=== PATIENT | female | born 1965 | race Caucasian/White ===

== ENCOUNTER 2016-10-22 18:46 | Emergency (ER) | payer MEDICARE, MEDICAID ==
[~2016-10-22] VITALS: Ht 162.6 cm; Wt 51.7 kg
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
--- OUTSIDE RECORDS SUMMARY | 2016-10-22 18:51 | XMS REPORT | Continuity of Care Document ---
Author Author [facility] Organization [facility] Address [address] [place] [address] ;ext= Care Team Providers Care Rabble Furnace Tender Name Role Phone Priya BLANCO Admitting Physician Unavailable Priya BLANCO Attending Physician Unavailable Hospital Admission Diagnosis * No data in the System Social History Element Description Code Description Smoking Status Code System Start Date End Date Smoking Status [id number] Smoker, current status unknown SNOMED-CT Problems Code Code System Problem Name Start Date End Date Status 176644893 SNOMED-CT Backache 03/31/2016 Active 492236620 SNOMED-CT Backache 03/14/2016 Active NECK, BACK, LEG PAIN 03/11/2016 Active HEADACHE, LEG PAIN 11/08/2015 Active VOMITING, HEADACHE 10/19/2015 Active BACK/NECK PAIN 08/30/2015 Active ELBOW AND ANKLE PAIN 07/06/2015 Active 058513252 SNOMED-CT C/O - a headache 08/10/2014 Active 89380031 SNOMED-CT Drug withdrawal seizure 04/2014 Active 078205301 SNOMED-CT Rib pain Unknown Active Medications RxNorm [...] 40 milligram Oral orally every day Active 195731 Zolpidem tartrate 10 MG Oral Tablet 10 milligram Oral orally every day at bedtime (takes 1/2 to 1 tab) Active 032031 Acetaminophen 325 MG / Hydrocodone Bitartrate 10 [...] Longer Active Cenestin 0.45mg No Longer Active 663459 Citalopram 10 MG Oral Tablet 10 milligram Oral orally every day No Longer Active 3866420 Estrogens, Conjugated ([facility]) 0.45 MG / medroxyprogesterone acetate 1.5 MG Oral Tablet 2 tablets Oral orally every day No Longer Active 32907 gabapentin 100 milligram Oral orally every day (Dose unknown, pt unable to provide and pharmacy closed. --KKL) No Longer Active 589722 gabapentin 600 MG Oral Tablet 600 milligram Oral orally every 12 hours No Longer Active Hycodan Liquid 5 ml Oral orally three times daily cough, pneumonia No Longer Active Linisprolil 20mg No Longer Active 6918 Metoprolol 50 milligram Oral orally every day No Longer Active 5385794 Oxycodone Hydrochloride 10 MG Oral Tablet 10 milligram Oral orally every 4 to 6 hours as needed. for severe pain not to exceeed 5 daily No Longer Active 550405 solifenacin succinate 10 MG Oral Tablet 10 milligram Oral orally every day No Longer Active Allergies Code Code System Allergy Substance Type Reaction Severity Start Date End Date Status 1191 RXNorm Aspirin Drug allergy Unknown 06/16/2009 Active 742619 RXNorm Benadryl Drug allergy Unknown 10/19/2015 Active 832294 RXNorm Flexeril Drug allergy Unknown 08/06/2012 Active 5640 RXNorm Ibuprofen Drug allergy Unknown 06/16/2009 Active 5933 RXNorm Iodine Drug allergy Unknown 08/06/2012 Active 036202 RXNorm Peanut Drug allergy Unknown 08/06/2012 Active RXNorm MISC-Other Allergy to substance Unknown 06/16/2009 Active Results * No data in the system Vital Signs Vitals Value Date Respiratory Rate 20 07/14/2016 O2% BldC Oximetry 98 07/14/2016 BP Systolic 141 mmHg 07/14/2016 BP Diastolic 76 mmHg 07/14/2016 Plan of Care * No data in [...]
--- OUTSIDE RECORDS SUMMARY | 2016-10-22 18:51 | XMS REPORT | Continuity of Care Document ---
Author Author [facility] Organization [facility] Address [address] [place] [address] ;ext= Care Team Providers Care Registered Private Duty Nurse Name Role Phone BOLIVAR RANGEL Admitting Physician Unavailable BOLIVAR RANGEL Attending Physician Unavailable Hospital Admission Diagnosis Code Admission Diagnosis Date [id number] Headache Social History Element Description Code Description Smoking Status Code System Start Date End Date Smoking Status [id number] Heavy tobacco smoker SNOMED-CT Problems Code Code System Problem Name Start Date End Date Status 704397888 SNOMED-CT Backache 03/31/2016 Active 037464249 SNOMED-CT Backache 03/14/2016 Active NECK, BACK, LEG PAIN 03/11/2016 Active HEADACHE, LEG PAIN 11/08/2015 Active VOMITING, HEADACHE 10/19/2015 Active BACK/NECK PAIN 08/30/2015 Active ELBOW AND ANKLE PAIN 07/06/2015 Active 911779070 SNOMED-CT C/O - a headache 08/10/2014 Active 32481055 SNOMED-CT Drug withdrawal seizure 04/2014 Active 948821396 SNOMED-CT Rib pain Unknown Active Medications RxNorm Medication Dose Route Instructions Indications Start Date End Date Status 435 Albuterol 1 puff Inhalation inhaled every 6 hours as needed. ( administer with spacer) shortness of breath or wheezing Active 596 Alprazolam 0.5 milligram Oral orally at hs as needed. for insomnia Active 9 Estrogens, Conjugated ([facility]) 0.625 milligram Oral orally every day Active 19780219 Lisinopril 40 MG Oral Tablet 40 milligram Oral orally every day Active 388732 Zolpidem tartrate 10 MG Oral Tablet 10 milligram Oral orally every day at bedtime (takes 1/2 to 1 tab) Active 487427 Acetaminophen 325 MG / Hydrocodone Bitartrate 10 [...] Longer Active Cenestin 0.45mg No Longer Active 758287 Citalopram 10 MG Oral Tablet 10 milligram Oral orally every day No Longer Active 1674351 Estrogens, Conjugated ([facility]) 0.45 MG / medroxyprogesterone acetate 1.5 MG Oral Tablet 2 tablets Oral orally every day No Longer Active 76779 gabapentin 100 milligram Oral orally every day (Dose unknown, pt unable to provide and pharmacy closed. --KK) No Longer Active 681246 gabapentin 600 MG Oral Tablet 600 milligram Oral orally every 12 hours No Longer Active Hycodan Liquid 5 ml Oral orally three times daily cough, pneumonia No Longer Active Linisprolil 20mg No Longer Active 6918 Metoprolol 50 milligram Oral orally every day No Longer Active 6114264 Oxycodone Hydrochloride 10 MG Oral Tablet 10 milligram Oral orally every 4 to 6 hours as needed. for severe pain not to exceeed 5 daily No Longer Active 485800 solifenacin succinate 10 MG Oral Tablet 10 milligram Oral orally every day No Longer Active Allergies Code Code System Allergy Substance Type Reaction Severity Start Date End Date Status 1191 RXNorm Aspirin Drug allergy Unknown 06/16/2009 Active 914037 RXNorm Benadryl Drug allergy Unknown 10/19/2015 Active 344602 RXNorm Flexeril Drug allergy Unknown 08/06/2012 Active 5640 RXNorm Ibuprofen Drug allergy Unknown 06/16/2009 Active 5933 RXNorm Iodine Drug allergy Unknown 08/06/2012 Active 752723 RXNorm Peanut Drug allergy Unknown 08/06/2012 Active RXNorm MISC-Other Allergy to substance Unknown 06/16/2009 Active Results Radiology Results Order: [id number] Ankle RT 3 views* Exam Completion Date:06/22/2016 [...] 95.01 lbs 06/22/2016 BSA (Body Surface Area) 1.77589 06/22/2016 BMI (Body Mass Index) 16.4 06/22/2016 Plan of Care * No data in the system Procedures * No data in the system Encounters Date Code Diagnosis Status (ICD10) - R51 HEADACHE Active Immunizations Vaccine Code Code System Vaccine Name Date Status 16 CVX influenza virus vaccine, whole virus 05/03/2012 Completed 88 CVX influenza virus vaccine, NOS 04/27/2015 Completed Functional Status * No data in the system Hospital Discharge Instructions * No data in the system
--- OUTSIDE RECORDS SUMMARY | 2016-10-22 18:51 | XMS REPORT | Continuity of Care Document ---
Author Author [facility] Organization [facility] Address [address] [place] [address] ;ext= Care Team Providers Care Proof Plate Maker Name Role Phone DR JOSE LUIS DOWELL Admitting Physician [phone] DR JOSE LUIS DOWELL Attending Physician [phone] Hospital Admission Diagnosis Code Admission Diagnosis Date [id number] Deaf mutism Social History Element Description Code Description Smoking Status Code System Start Date End Date Smoking Status [id number] Unknown if ever smoked SNOMED-CT Problems Code Code System Problem Name Start Date End Date Status 348537991 SNOMED-CT Backache 03/31/2016 Active 967824792 SNOMED-CT Backache 03/14/2016 Active NECK, BACK, LEG PAIN 03/11/2016 Active HEADACHE, LEG PAIN 11/08/2015 Active VOMITING, HEADACHE 10/19/2015 Active BACK/NECK PAIN 08/30/2015 Active ELBOW AND ANKLE PAIN 07/06/2015 Active 207295820 SNOMED-CT C/O - a headache 08/10/2014 Active 99255431 SNOMED-CT Drug withdrawal seizure 04/2014 Active 375462730 SNOMED-CT Rib pain Unknown Active Medications RxNorm Medication Dose Route Instructions Indications Start Date End Date Status 435 Albuterol 1 puff Inhalation inhaled every 6 hours as needed. ( administer with spacer) shortness of breath or wheezing Active 596 Alprazolam 0.5 milligram Oral orally at hs as needed. for insomnia Active 4099 Estrogens, Conjugated ([facility]) 0.625 milligram Oral orally every day Active 33875 gabapentin 100 milligram Oral orally every day (Dose unknown, pt unable to provide and pharmacy closed. --KKL) Active 93862 Lisinopril 40 milligram Oral orally every day Active 07182 zolpidem 10 milligram Oral orally every day at bedtime (takes 1/2 to 1 tab) Active Acetaminophen 650 milligram Oral orally every 6 hours as needed. pain No Longer Active 351935 Acetaminophen 325 MG / Hydrocodone Bitartrate 10 MG Oral Tablet 1 tablet Oral orally every 4 to 6 hours as needed. for severe pain No Longer Active Azithromycin 200 mg Oral orally every day for 10 days No Longer Active Cenestin 0.45mg No Longer Active 2556 Citalopram 10 milligram Oral orally every day No Longer Active 8482460 Estrogens, Conjugated ([facility]) 0.45 MG / medroxyprogesterone acetate 1.5 MG Oral Tablet 2 tablets Oral orally every day No Longer Active 87715 gabapentin 600 milligram Oral orally every 12 hours No Longer Active Hycodan Liquid 5 ml Oral orally three times daily cough, pneumonia No Longer Active Linisprolil 20mg No Longer Active 6918 Metoprolol 50 milligram Oral orally every day No Longer Active 7804 Oxycodone 10 milligram Oral orally every 4 to 6 hours as needed. for severe pain not to exceeed 5 daily No Longer Active 588452 Solifenacin 10 milligram Oral orally every day No Longer Active Allergies Code Code System Allergy Substance Type Reaction Severity Start Date End Date Status 1191 RXNorm Aspirin Drug allergy Unknown 06/16/2009 Active 075674 RXNorm Benadryl Drug allergy Unknown 10/19/2015 Active 266345 RXNorm Flexeril Drug allergy Unknown 08/06/2012 Active 5640 RXNorm Ibuprofen Drug allergy Unknown 06/16/2009 Active 5933 RXNorm Iodine Drug allergy Unknown 08/06/2012 Active 745722 RXNorm Peanut Drug allergy Unknown 08/06/2012 Active RXNorm MISC-Other Allergy to substance Unknown 06/16/2009 Active Results * No data in the system Vital Signs Vitals Value Date Body Temperature 98.2 F 03/31/2016 Respiratory Rate 18 03/31/2016 O2% BldC Oximetry 98 03/31/2016 BP Systolic 184 mmHg 03/31/2016 BP Diastolic 99 mmHg 03/31/2016 Height 64 in 03/31/2016 Weight Measured 100 lbs 03/31/2016 BSA (Body Surface Area) 1.99789 03/31/2016 BMI (Body Mass Index) 17.2 03/31/2016 Plan of Care * No data in the system Procedures * No data in the system Encounters Date Code Diagnosis Status (ICD10) - H913 DEAF NONSPEAKING NEC Active Immunizations Vaccine Code Code System Vaccine Name Date Status 16 CVX influenza virus vaccine, whole virus 05/03/2012 Completed 88 CVX influenza virus vaccine, NOS 04/27/2015 Completed Functional Status * No data in the system Hospital Discharge Instructions * No data in the system
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
--- OUTSIDE RECORDS SUMMARY | 2016-10-22 18:51 | XMS REPORT | Continuity of Care Document ---
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 Young Adult Librarian Name Role Phone [employer] Unavailable Unavailable Problems Medications Allergies, Adverse Reactions, Alerts Substance Category Reaction Severity Reaction type Status Date Reported Comments Source aspirin Datatype(AL1.2)-Drug Allergy Active 12/07/2006 [facility] Iodine Datatype(AL1.2)-Drug Allergy Active 12/07/2006 [facility] Immunizations Results Vital Signs Encounters Location Location Details Encounter Type Encounter Number Reason For Visit Attending Provider ADM Date DC Date Status Source [facility] Emergency Room [id number] POSS URINE INFECTION [facility] 12/07/2006 Active [facility] Procedures Plan of Care Social History Assessment and Plan Family History Value Date Source Advance Directives Order Name Results Value Date Source
--- OUTSIDE RECORDS SUMMARY | 2016-10-22 18:51 | XMS REPORT | Continuity of Care Document ---
Author Author [facility] Organization [facility] Address [address] [place] [address] ;ext= Care Team Providers Care Spool Cleaner Name Role Phone Priya BLANCO Admitting Physician Unavailable Priya BLANCO Attending Physician Unavailable Hospital Admission Diagnosis Code Admission Diagnosis Date [id number] Disorder of lumbar disc Social History Element Description Code Description Smoking Status Code System Start Date End Date Smoking Status [id number] Smoker, current status unknown SNOMED-CT Problems Code Code System Problem Name Start Date End Date Status [id number] SNOMED-CT Backache 03/31/2016 Active 986646074 SNOMED-CT Backache 03/14/2016 Active NECK, BACK, LEG PAIN 03/11/2016 Active HEADACHE, LEG PAIN 11/08/2015 Active VOMITING, HEADACHE 10/19/2015 Active BACK/NECK PAIN 08/30/2015 Active ELBOW AND ANKLE PAIN 07/06/2015 Active 703811320 SNOMED-CT C/O - a headache 08/10/2014 Active 51131554 SNOMED-CT Drug withdrawal seizure 04/2014 Active 556870052 SNOMED-CT Rib pain Unknown Active Medications RxNorm Medication Dose Route Instructions Indications Start Date End Date Status 435 Albuterol 1 puff Inhalation inhaled every 6 hours as needed. ( administer with spacer) shortness of breath or wheezing Active 596 Alprazolam 0.5 milligram Oral orally at hs as needed. for insomnia Active 9 Estrogens, Conjugated (ASSISTED) 0.625 milligram Oral orally every day Active 013473 Lisinopril 40 MG Oral Tablet 40 milligram Oral orally every day Active 397578 Zolpidem tartrate 10 MG Oral Tablet 10 milligram Oral orally every day at bedtime (takes 1/2 to 1 tab) Active 789671 Acetaminophen 325 MG / Hydrocodone Bitartrate 10 [...] Longer Active Cenestin 0.45mg No Longer Active 258606 Citalopram 10 MG Oral Tablet 10 milligram Oral orally every day No Longer Active 4283359 Estrogens, Conjugated (ASSISTED) 0.45 MG / medroxyprogesterone acetate 1.5 MG Oral Tablet 2 tablets Oral orally every day No Longer Active 57958 gabapentin 100 milligram Oral orally every day (Dose unknown, pt unable to provide and pharmacy closed. --[facility]) No Longer Active 954556 gabapentin 600 MG Oral Tablet 600 milligram Oral orally every 12 hours No Longer Active Hycodan Liquid 5 ml Oral orally three times daily cough, pneumonia No Longer Active Linisprolil 20mg No Longer Active 6918 Metoprolol 50 milligram Oral orally every day No Longer Active 5164998 Oxycodone Hydrochloride 10 MG Oral Tablet 10 milligram Oral orally every 4 to 6 hours as needed. for severe pain not to exceeed 5 daily No Longer Active 758209 solifenacin succinate 10 MG Oral Tablet 10 milligram Oral orally every day No Longer Active Allergies Code Code System Allergy Substance Type Reaction Severity Start Date End Date Status 1191 RXNorm Aspirin Drug allergy Unknown 06/16/2009 Active 193317 RXNorm Benadryl Drug allergy Unknown 10/19/2015 Active 591356 RXNorm Flexeril Drug allergy Unknown 08/06/2012 Active 5640 RXNorm Ibuprofen Drug allergy Unknown 06/16/2009 Active 5933 RXNorm Iodine Drug allergy Unknown 08/06/2012 Active 343946 RXNorm Peanut Drug allergy Unknown 08/06/2012 Active [...] Encounters Date Code Diagnosis Status (ICD10) - M5116 IV DISC D/O W/RADICULOPATHY LUMB Active Immunizations Vaccine Code Code System Vaccine Name Date Status 16 CVX influenza virus vaccine, whole virus 05/03/2012 Completed 88 CVX influenza virus vaccine, NOS 04/27/2015 Completed Functional Status * No data in the system Hospital Discharge Instructions * No data in the system
--- OUTSIDE RECORDS SUMMARY | 2016-10-22 18:51 | XMS REPORT | Summary of Care ---
Author Author Moustapha Graves D.O. Organization Unknown Address [address] [place], [place] [id number] Phone Unavailable Care Team Providers Care Pluck Trimmer Name Role Phone Rogerio Crawford M.D. Unavailable Unavailable Rocio Baron M.D. Unavailable Unavailable Rogerio Graves D.O. Unavailable Unavailable Verify PCP Unavailable Unavailable Unavailable [...] 4 PER DAY*MAY FILL ON OR AFTER 8/12/14* Quantity: 120 Loraine Aleman, Rocio * Start 24-Oct-2012 Active Prempro 0.3-1.5 MG Oral Tablet TAKE ONE TABLET BY MOUTH EVERY OTHER DAY * Quantity: 28 Refills: 2 Thode Gilbert Aleman Start 24-Oct-2012 Active Lisinopril 40 MG Oral Tablet TAKE ONE TABLET BY MOUTH ONCE DAILY DIRECTED * Quantity: 30 Refills: 4 Thode Gilbert Aleman Start 24-Oct-2012 Active Zolpidem Tartrate 10 MG Oral Tablet TAKE ONE TABLET BY MOUTH AT BEDTIME NEEDED FOR SLEEP. MUST LAST 30 DAYS. * Quantity: 30 Refills: 0 ThGilbert perez M.D. Start 18-Jul-2013 Active ALPRAZolam 1 MG Oral Tablet * Refills: 0 * Start 10-Sep-2016 Active Metoprolol Succinate ER 50 MG Oral Tablet Extended Release 24 Hour TAKE ONE TABLET BY MOUTH ONCE A DAY * Quantity: 30 Refills: 2 [place] Gilbert Aleman Start 10-Sep-2016 [facility] Fluticasone Propionate 50 [...] Abdominal Hysterectomy ORTHO ANKLE RIGHT Ordered: 30-Sep-2016 XRay FOOT-Left Ordered: 13-Oct-2016 Immunization Name Dates Details Immunizations not documented [...] Vital Signs Date Test Result Details 13-Oct-2016 11:37 BP Systolic 140 mm[Hg] Status: Comments: Location: LUE; Position: Sitting BP Diastolic 90 mm[Hg] Status: Comments: Location: LUE; Position: Sitting Temperature 97.3 f Status: Comments: Method: Heart Rate 62 /min Status: Comments: Location: ; Weight 104.5 lb Status: Physical Findings 96 Status: Comments: O2 Saturation Body Mass Index Calculated 19.11 kg/m2 Status: Body Surface Area Calculated 1.45 m2 Status: 21-Sep-2016 10:36 BP Systolic 122 mm[Hg] Status: Comments: Location: ; Position: BP Diastolic 84 mm[Hg] Status: Comments: Location: ; Position: Temperature 97.2 f Status: Comments: Method: Heart Rate 59 /min Status: Comments: Location: [...] NEGATIVE Range: Negative [place] NEGATIVE Range: Negative Plan of Care Name Dates Details Planned Observations Planned Goals not documented Planned Encounters Appointment; Provider: Osmany Coreas M.D. On 13-Oct-2016 13:00 Interventions Provided Medication Changes* Hydrocodone-Acetaminophen 10-325 MG Oral Tablet - Start Labs/Procedures/Imaging* XRay FOOT-Left; To be Done: 13 Oct 2016 Instructions Name Dates Details Instructions not documented Encounters Appointment; Dawood Ospina M.D. Encounter Diagnosis: Problem not documented On 30-Sep-2016 14:30 Appointment; Gilbert Crawford M.D. Encounter Diagnosis: Problem not documented On 21-Sep-2016 10:00 Appointment; Dawood Ospina M.D. Encounter Diagnosis: Problem not documented On 21-Sep-2016 09:30 Appointment; Gilbert Crawford M.D. Encounter Diagnosis: Problem not documented On 10-Sep-2016 14:15
--- OUTSIDE RECORDS SUMMARY | 2016-10-22 18:51 | XMS REPORT | Continuity of Care Document ---
Author Author [facility] Organization [facility] Address [address] [place] [address] ;ext= Care Team Providers Care Product Safety And Standards Engineer Name Role Phone BOLIVAR RANGEL Admitting Physician Unavailable BOLIVAR RANGEL Attending Physician Unavailable Hospital Admission Diagnosis Code Admission Diagnosis Date [id number] Contusion of elbow Social History Element Description Code Description Smoking Status Code System Start Date End Date Smoking Status [id number] Light tobacco smoker SNOMED-CT Problems Code Code System Problem Name Start Date End Date Status BACK/NECK PAIN 08/30/2015 Active ELBOW AND ANKLE PAIN 07/06/2015 Active 183312252 SNOMED-CT C/O - a headache 08/10/2014 Active 31768849 SNOMED-CT Drug withdrawal seizure 04/2014 Active 820059669 SNOMED-CT Rib pain Unknown Active Medications RxNorm Medication Dose Route Instructions Indications Start Date End Date Status 435 Albuterol 1 puff Inhalation inhaled every 6 hours as needed. ( administer with spacer) shortness of breath or wheezing Active 596 Alprazolam 0.5 milligram Oral orally at hs as needed. for insomnia Active 4099 Estrogens, Conjugated (FPC) 0.625 milligram Oral orally every day Active 19780219 Lisinopril 40 MG Oral Tablet 40 milligram Oral orally every day Active 18 Metoprolol 50 milligram Oral orally every day Active 723794 Zolpidem tartrate 10 MG Oral Tablet 10 milligram Oral orally every day at bedtime (takes 1/2 to 1 tab) Active 167329 Acetaminophen 325 MG / Hydrocodone Bitartrate 10 [...] Longer Active Cenestin 0.45mg No Longer Active 556162 Citalopram 10 MG Oral Tablet 10 milligram Oral orally every day No Longer Active 8530831 Estrogens, Conjugated (FPC) 0.45 MG / medroxyprogesterone acetate 1.5 MG Oral Tablet 2 tablets Oral orally every day No Longer Active 475022 gabapentin 600 MG Oral Tablet 600 milligram Oral orally every 12 hours No Longer Active Hycodan Liquid 5 ml Oral orally three times daily cough, pneumonia No Longer Active Linisprolil 20mg No Longer Active 4617198 Oxycodone Hydrochloride 10 MG Oral Tablet 10 milligram Oral orally every 4 to 6 hours as needed. for severe pain not to exceeed 5 daily No Longer Active 945590 solifenacin succinate 10 MG Oral Tablet 10 milligram Oral orally every day No Longer Active Allergies Code Code System Allergy Substance Type Reaction Severity Start Date End Date Status 1191 RXNorm Aspirin Drug allergy Unknown 06/16/2009 Active 917204 RXNorm Flexeril Drug allergy Unknown 08/06/2012 Active 5640 RXNorm Ibuprofen Drug allergy Unknown 06/16/2009 Active 5933 RXNorm Iodine Drug allergy Unknown 08/06/2012 Active 973014 RXNorm Peanut Drug allergy Unknown 08/06/2012 Active RXNorm MISC-Other Allergy to substance Unknown 06/16/2009 Active Results Radiology Results Order: [id number] Knee RT 3 views* Exam Completion Date:09/11/2015 14:43 INDICATION: FallKnee RT 3 views: There are minimal hypertrophic changes in the right knee.Probable tiny right knee joint effusion. The right knee is otherwise negative.There are no erosions. There are no focal osseous lesions. No evidence of afracture. No significant change since 07/22/2015.Released By MELANY MEDINA, JASIELate: 09/11/2015 15:26 Order: [id number] Elbow Bilat 3 views* Exam Completion Date:09/11/2015 14:42 INDICATION: FallBILATERAL ELBOWS 3-VIEWS EACH (AP, OBLIQUE & LAT): COMPARISON: NoneFINDINGS: Mild hypertrophic changes in the right elbow. Both elbows areotherwise negative. There are no focal osseous lesions. No evidence of afracture or a significant joint effusion involving either elbow. Released By JASIEL CHASEate: 09/11/2015 15:26 Vital Signs Vitals Value Date Body Temperature 98 F 09/11/2015 Respiratory Rate 18 09/11/2015 O2% BldC Oximetry 99 09/11/2015 BP Systolic 212 mmHg 09/11/2015 BP Diastolic 111 mmHg 09/11/2015 Height 64 in 09/11/2015 Weight Measured 103.17 lbs 09/11/2015 BSA (Body Surface Area) 1.02480 09/11/2015 BMI (Body Mass Index) 17.8 09/11/2015 Plan of Care * No data in the system Procedures * No data in the system Encounters Date Code Diagnosis Status (ICD10) - A0373HJ CONTUSION LEFT ELBOW INITIAL ENC Active Immunizations Vaccine Code Code System Vaccine Name Date Status 16 CVX influenza virus vaccine, whole virus 05/03/2012 Completed Functional Status * No data in the system Hospital Discharge Instructions * No data in the system
--- OUTSIDE RECORDS SUMMARY | 2016-10-22 18:51 | XMS REPORT | Continuity of Care Document ---
Author Author [facility] Organization [facility] Address [address] [place] [address] ;ext= Care Team Providers Care Supervisor Cereal Name Role Phone Ehsan MARQUEZ Admitting Physician Unavailable Ehsan MARQUEZ Attending Physician Unavailable Hospital Admission Diagnosis Code Admission Diagnosis Date [id number] Injury of head Social History Element Description Code Description Smoking Status Code System Start Date End Date Smoking Status [id number] Current every day smoker SNOMED-CT Problems Code Code System Problem Name Start Date End Date Status 897568576 SNOMED-CT Backache 03/31/2016 Active 687321193 SNOMED-CT Backache 03/14/2016 Active NECK, BACK, LEG PAIN 03/11/2016 Active HEADACHE, LEG PAIN 11/08/2015 Active VOMITING, HEADACHE 10/19/2015 Active BACK/NECK PAIN 08/30/2015 Active ELBOW AND ANKLE PAIN 07/06/2015 Active 339932270 SNOMED-CT C/O - a headache 08/10/2014 Active 53979865 SNOMED-CT Drug withdrawal seizure 04/2014 Active 999260543 SNOMED-CT Rib pain Unknown Active Medications RxNorm Medication Dose Route Instructions Indications Start Date End Date Status 129512 Acetaminophen 325 MG / Hydrocodone Bitartrate 10 MG Oral Tablet 1 tablet Oral orally every 4 hours as needed. pain Active 435 Albuterol 1 puff Inhalation inhaled every 6 hours as needed. ( administer with spacer) shortness of breath or wheezing Active 596 Alprazolam 0.5 milligram Oral orally at hs as needed. for insomnia Active 4099 Estrogens, Conjugated (DETENTION) 0.625 milligram Oral orally every day Active 8187793 Fluticasone propionate 0.05 MG/ACTUAT Metered Dose Nasal Agate 1 spray Intranasal into the nostril(s) 2 times per day Active 166809 Lisinopril 40 MG Oral Tablet 40 milligram Oral orally every day Active 6918 Metoprolol 100 milligram Oral orally every day Active 679242 Zolpidem tartrate 10 MG Oral Tablet 10 milligram Oral orally every day at bedtime (takes 1/2 to 1 tab) Active 264653 Acetaminophen 325 MG / Hydrocodone Bitartrate 10 MG Oral Tablet 1 tablet Oral orally every 4 to 6 hours as needed. for severe pain No Longer Active 336006 Acetaminophen 650 MG Oral Tablet 650 milligram Oral orally every 6 hours as needed. pain No Longer Active Azithromycin 200 mg Oral orally every day for 10 days No Longer Active Cenestin 0.45mg No Longer Active 668267 Citalopram 10 MG Oral Tablet 10 milligram Oral orally every day No Longer Active 2901415 Estrogens, Conjugated (DETENTION) 0.45 MG / medroxyprogesterone acetate 1.5 MG Oral Tablet 2 tablets Oral orally every day No Longer Active 03775 gabapentin 100 milligram Oral orally every day (Dose unknown, pt unable to provide and pharmacy closed. --[facility]) No Longer Active 320772 gabapentin 600 MG Oral Tablet 600 milligram Oral orally every 12 hours No Longer Active Hycodan Liquid 5 ml Oral orally three times daily cough, pneumonia No Longer Active Linisprolil 20mg No Longer Active 6918 Metoprolol 50 milligram Oral orally every day No Longer Active 1836296 Oxycodone Hydrochloride 10 MG Oral Tablet 10 milligram Oral orally every 4 to 6 hours as needed. for severe pain not to exceeed 5 daily No Longer Active 285222 solifenacin succinate 10 MG Oral Tablet 10 milligram Oral orally every day No Longer Active Allergies Code Code System Allergy Substance Type Reaction Severity Start Date End Date Status 1191 RXNorm Aspirin Drug allergy Unknown 06/16/2009 Active 581920 RXNorm Benadryl Drug allergy Unknown 10/19/2015 Active 808865 RXNorm Flexeril Drug allergy Unknown 08/06/2012 Active 5640 RXNorm Ibuprofen Drug allergy Unknown 06/16/2009 Active 5933 RXNorm Iodine Drug allergy Unknown 08/06/2012 Active 967867 RXNorm Peanut Drug allergy Unknown 08/06/2012 Active RXNorm MISC-Other Allergy to substance Unknown 06/16/2009 Active Results Radiology Results Order: [id number] CT Lumbar Spine WO/Contrast* Exam Completion Date:10/09/2016 16: 32 INDICATION: fall, lbpCT Lumbar Spine WO/Contrast: Normal alignment. Vertebral body height and discspace height are maintained. No compression deformity. No pars defects. Thelung bases are clear, without pleural effusion or atelectasis. Bodies andposterior lateral elements are normal. No pars defects. No spondylolisthesis.The sacrum and sacroiliac joints are normal. No worrisome finding.Released By MICHELLE CORTES, JASIELate: 10/09/2016 17:01 Order: CTHDWO CT Head or Brain WO/Contrast* Exam Completion Date:10/09/2016 15: 54 INDICATION: head injuryCT Head or Brain WO/Contrast: CT Head or Brain WO/ ContrastTechnique: Axial acquisitions were obtained through the brain withoutcontrast. The ventricles and sulci are age-appropriate. The moore-white matter interfaceis maintained. There is no midline shift or mass effect. The basilarcisterns remain patent. There is no evidence for acute intracranialhemorrhage.IMPRESSION: No acute intracranial abnormality.Released By JASIEL DONISate: 10/09/2016 16:58 Order: CTCERWO CT Cerv Spine WO/Contrast* Exam Completion Date:10/09/2016 15:54 INDICATION: head injuryCT Cerv Spine WO/Contrast: Normal alignment. Multilevel anterior instrumentedfusion, from C3 through C6. No fracture. No acute bony abnormality. Moderatediscogenic disease at C6-7. The prevertebral soft tissue space is not widenedor thickened. Normal appearance of the dens. The vertebral bodies andposterior lateral elements are normal. No loosening of the prostheticelements. The upper lung zones are clear. No worrisome finding.Released By MICHELLE CORTES, MDDate: 10/09/2016 16:59 Vital Signs Vitals Value Date Respiratory Rate 20 10/09/2016 O2% BldC Oximetry 97 10/09/2016 BP Systolic 182 mmHg 10/09/2016 BP Diastolic 112 mmHg 10/09/2016 Weight Measured 135 lbs 10/09/2016 Body Temperature 97 F 10/09/2016 Plan of Care * No data in the system Procedures * No data in the system Encounters Date Code Diagnosis Status (ICD10) - G800MBT OTH SPEC INJURIES HEAD INITIAL ENC Active Immunizations Vaccine Code Code System Vaccine Name Date Status 16 CVX influenza virus vaccine, whole virus 05/03/2012 Completed 88 CVX influenza virus vaccine, NOS 04/27/2015 Completed Functional Status * No data in the system Hospital Discharge Instructions * No data in the system
--- OUTSIDE RECORDS SUMMARY | 2016-10-22 18:51 | XMS REPORT | Summary of Care ---
Author Author Dawood Ospina M.D. Organization Unknown Address Unknown Phone Unavailable Care Team Providers Care Fur Trapper Name Role Phone Rogerio Crawford M.D. Unavailable Unavailable Rocio Baron M.D. Unavailable Unavailable Guero Ospina M.D. Unavailable Unavailable Verify PCP Unavailable Unavailable [...] leg pain, right (729.5, M79.604) Status: Active Medications Name Dates Details Hydrocodone-Acetaminophen 10-325 MG Oral Tablet TAKE 1 TABLET BY MOUTH EVERY 6 HOURS NEEDED FOR PAIN.*MAX 4 PER DAY*MAY FILL ON OR AFTER 02/27/14* Quantity: 120 Loraine Aleman, Rocio * Start 24-Oct-2012 Active Prempro 0.3-1.5 MG Oral Tablet TAKE ONE TABLET BY MOUTH EVERY OTHER DAY * Quantity: 28 Refills: 2 Thode M.D., Gilbert L * Start 24-Oct-2012 Active Lisinopril 40 MG Oral Tablet TAKE ONE TABLET BY MOUTH ONCE DAILY DIRECTED * Quantity: 30 Refills: 4 Thode MGilbert Dean Start 24-Oct-2012 Active Zolpidem Tartrate 10 MG Oral Tablet TAKE ONE TABLET BY MOUTH AT BEDTIME NEEDED FOR SLEEP. MUST LAST 30 DAYS. * Quantity: 30 Refills: 0 Thode Gilbert Aleman Start 18-Jul-2013 Active ALPRAZolam 1 MG Oral Tablet * Refills: 0 * Start 10-Sep-2016 Active Metoprolol Succinate ER 50 MG Oral Tablet Extended Release 24 Hour TAKE ONE TABLET BY MOUTH ONCE A DAY * Quantity: 30 Refills: 2 Thode MGilbert Dean Start 10-Sep-2016 Active [facility] Fluticasone Propionate 50 MCG/ACT Nasal Suspension 2 sprays in each nostril BID * Quantity: 1 Refills: 0 Thode Gilbert Aleman Start 10-Sep-2016 Active 15.8 ML Bottle Triamcinolone Acetonide 0.1 % External Lotion APPLY 2-3 TIMES DAILY TO AFFECTED AREA(S). * Quantity: 1 Refills: 0 Thode Gilbert Aleman Start 21-Sep-2016 Active 60 ML Bottle Allergies and Adverse Reactions Name Dates Details [...] therapy) (V07.4, Z79.890) Status: Active History of hypertension (V12.59, Z86.79) Status: Resolved Procedures Procedure Dates Details History [...] unknown Vital Signs Date Test Result Details 21-Sep-2016 10:36 BP Systolic 122 mm[Hg] Status: [...] Body Surface Area Calculated 1.44 m2 Status: 10-Sep-2016 15:27 BP Systolic 124 mm[Hg] Status: Comments: Location: LUE; Position: Sitting BP Diastolic 82 mm[Hg] Status: Comments: Location: LUE; Position: Sitting Heart Rate 70 /min Status: Comments: Location: ; Height 62 in Status: Weight 99 lb Status: Physical Findings 98 Status: Comments: O2 Saturation Body Mass Index Calculated 18.11 kg/m2 Status: Body Surface Area Calculated 1.42 m2 Status: Results Date Description Value Details 10-Sep-2016 16:59 XRay FOOT-Right Comments: Exam Date: 09/10/2016 16: 10Dictation Date: 09/10/2016 16:59 X FOOT COMP (MIN 3V) RT 17:00 XRay TIBIA & FIBULA-Right Comments: Exam Date: 09/10/2016 16: 09Dictation Date: 09/10/2016 17:00 X TIBIA & FIBULA RT 21-Sep-2016 11:44 Urinalysis, Reflex to Microscopic or [...] Coreas M.D. On 13-Oct-2016 13:00 Interventions Provided Labs/Procedures/Imaging* ORTHO ANKLE RIGHT; To be Done: 30 Sep 2016 Instructions Name Dates Details Instructions not documented Encounters Appointment; Gilbert Crawford M.D. Encounter Diagnosis: Problem not documented On 21-Sep-2016 10:00 Appointment; Dawood Ospina M.D. Encounter Diagnosis: Problem not documented On 21-Sep-2016 09:30 Appointment; Gilbert Crawford M.D. Encounter Diagnosis: Problem not documented On 10-Sep-2016 14:15
--- OUTSIDE RECORDS SUMMARY | 2016-10-22 18:52 | XMS REPORT | Continuity of Care Document ---
Author Author [facility] Organization [facility] Address [address] [place] [address] ;ext= Care Team Providers Care Gas Blender Name Role Phone Ehsan CHANDRA Admitting Physician Unavailable Ehsan CHANDRA Attending Physician Unavailable Hospital Admission Diagnosis * No data in the System Social History Element Description Code Description Smoking Status Code System Start Date End Date Smoking Status [id number] Heavy tobacco smoker SNOMED-CT Problems Code Code System Problem Name Start Date End Date Status 825580569 SNOMED-CT Backache 03/14/2016 Active NECK, BACK, LEG PAIN 03/11/2016 Active HEADACHE, LEG PAIN 11/08/2015 Active VOMITING, HEADACHE 10/19/2015 Active BACK/NECK PAIN 08/30/2015 Active ELBOW AND ANKLE PAIN 07/06/2015 Active 500877642 SNOMED-CT C/O - a headache 08/10/2014 Active 42828743 SNOMED-CT Drug withdrawal seizure 04/2014 Active 614138041 SNOMED-CT Rib pain Unknown Active Medications RxNorm Medication Dose Route Instructions Indications Start Date End Date Status 435 Albuterol 1 puff Inhalation inhaled every 6 hours as needed. ( administer with spacer) shortness of breath or wheezing Active 596 Alprazolam 0.5 milligram Oral orally at hs as needed. for insomnia Active 4099 Estrogens, Conjugated (FDC) 0.625 milligram Oral orally every day Active 18736 gabapentin 100 milligram Oral orally every day (Dose unknown, pt unable to provide and pharmacy closed. --KKL) Active 19780219 Lisinopril 40 MG Oral Tablet 40 milligram Oral orally every day Active 327721 Zolpidem tartrate 10 MG Oral Tablet 10 milligram Oral orally every day at bedtime (takes 1/2 to 1 tab) Active 253004 Acetaminophen 325 MG / Hydrocodone Bitartrate 10 [...] Longer Active Cenestin 0.45mg No Longer Active 172013 Citalopram 10 MG Oral Tablet 10 milligram Oral orally every day No Longer Active 8176528 Estrogens, Conjugated (FDC) 0.45 MG / medroxyprogesterone acetate 1.5 MG Oral Tablet 2 tablets Oral orally every day No Longer Active 771055 gabapentin 600 MG Oral Tablet 600 milligram Oral orally every 12 hours No Longer Active Hycodan Liquid 5 ml Oral orally three times daily cough, pneumonia No Longer Active Linisprolil 20mg No Longer Active 6918 Metoprolol 50 milligram Oral orally every day No Longer Active 4360378 Oxycodone Hydrochloride 10 MG Oral Tablet 10 milligram Oral orally every 4 to 6 hours as needed. for severe pain not to exceeed 5 daily No Longer Active 861646 solifenacin succinate 10 MG Oral Tablet 10 milligram Oral orally every day No Longer Active Allergies Code Code System Allergy Substance Type Reaction Severity Start Date End Date Status 1191 RXNorm Aspirin Drug allergy Unknown 06/16/2009 Active 312692 RXNorm Benadryl Drug allergy Unknown 10/19/2015 Active 437033 RXNorm Flexeril Drug allergy Unknown 08/06/2012 Active 5640 RXNorm Ibuprofen Drug allergy Unknown 06/16/2009 Active 5933 RXNorm Iodine Drug allergy Unknown 08/06/2012 Active 769630 RXNorm Peanut Drug allergy Unknown 08/06/2012 Active RXNorm MISC-Other Allergy to substance Unknown 06/16/2009 Active Results * No data in the system Vital Signs Vitals Value Date Body Temperature 97.7 F 03/14/2016 Respiratory Rate 16 03/14/2016 O2% BldC Oximetry 100 03/14/2016 BP Systolic 162 mmHg 03/14/2016 BP Diastolic 72 mmHg 03/14/2016 Weight Measured 94.79 lbs 03/14/2016 Plan of Care * No data in [...]
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
--- OUTSIDE RECORDS SUMMARY | 2016-10-22 18:52 | XMS REPORT | Continuity of Care Document ---
Author Author [facility] Organization [facility] Address [address] [place] [address] ;ext= Care Team Providers Care Advertising Display Rotator Name Role Phone Ehsan CHANDRA Admitting Physician Unavailable Ehsan CHANDRA Attending Physician Unavailable Hospital Admission Diagnosis * No data in the System Social History Element Description Code Description Smoking Status Code System Start Date End Date Smoking Status [id number] Heavy tobacco smoker SNOMED-CT Problems Code Code System Problem Name Start Date End Date Status BACK/NECK PAIN 08/30/2015 Active ELBOW AND ANKLE PAIN 07/06/2015 Active 657302697 SNOMED-CT C/O - a headache 08/10/2014 Active 19512403 SNOMED-CT Drug withdrawal seizure 04/2014 Active 517048324 SNOMED-CT Rib pain Unknown Active Medications RxNorm Medication Dose Route Instructions Indications Start Date End Date Status 435 Albuterol 1 puff Inhalation inhaled every 6 hours as needed. ( administer with spacer) shortness of breath or wheezing Active 596 Alprazolam 0.5 milligram Oral orally at hs as needed. for insomnia Active 9 Estrogens, Conjugated (JAIL) 0.625 milligram Oral orally every day Active 19780219 Lisinopril 40 MG Oral Tablet 40 milligram Oral orally every day Active 18 Metoprolol 50 milligram Oral orally every day Active 529920 Zolpidem tartrate 10 MG Oral Tablet 10 milligram Oral orally every day at bedtime (takes 1/2 to 1 tab) Active 425965 Acetaminophen 325 MG / Hydrocodone Bitartrate 10 [...] Longer Active Cenestin 0.45mg No Longer Active 844308 Citalopram 10 MG Oral Tablet 10 milligram Oral orally every day No Longer Active 0321816 Estrogens, Conjugated (JAIL) 0.45 MG / medroxyprogesterone acetate 1.5 MG Oral Tablet 2 tablets Oral orally every day No Longer Active 037997 gabapentin 600 MG Oral Tablet 600 milligram Oral orally every 12 hours No Longer Active Hycodan Liquid 5 ml Oral orally three times daily cough, pneumonia No Longer Active Linisprolil 20mg No Longer Active 4632025 Oxycodone Hydrochloride 10 MG Oral Tablet 10 milligram Oral orally every 4 to 6 hours as needed. for severe pain not to exceeed 5 daily No Longer Active 010389 solifenacin succinate 10 MG Oral Tablet 10 milligram Oral orally every day No Longer Active Allergies Code Code System Allergy Substance Type Reaction Severity Start Date End Date Status 1191 RXNorm Aspirin Drug allergy Unknown 06/16/2009 Active 733686 RXNorm Flexeril Drug allergy Unknown 08/06/2012 Active 5640 RXNorm Ibuprofen Drug allergy Unknown 06/16/2009 Active 5933 RXNorm Iodine Drug allergy Unknown 08/06/2012 Active 716623 RXNorm Peanut Drug allergy Unknown 08/06/2012 Active RXNorm MISC-Other Allergy to substance Unknown 06/16/2009 Active Results * No data in the system Vital Signs Vitals Value Date Body Temperature 97.4 F 08/31/2015 Respiratory Rate 20 08/31/2015 O2% BldC Oximetry 97 08/31/2015 BP Systolic 163 mmHg 08/31/2015 BP Diastolic 101 mmHg 08/31/2015 Height 63 in 08/31/2015 Weight Measured 103.17 lbs 08/31/2015 BSA (Body Surface Area) 1.56601 08/31/2015 BMI (Body Mass Index) 18.2 08/31/2015 Plan of Care * No data in [...]
--- OUTSIDE RECORDS SUMMARY | 2016-10-22 18:52 | XMS REPORT | Continuity of Care Document ---
Author Author [facility] Organization [facility] Address [address] [place] [address] ;ext= Care Team Providers Care Crane Man Name Role Phone Ehsan CHANDRA Admitting Physician Unavailable Ehsan CHANDRA Attending Physician Unavailable Hospital Admission Diagnosis * No data in the System Social History Element Description Code Description Smoking Status Code System Start Date End Date Smoking Status [id number] Heavy tobacco smoker SNOMED-CT Problems Code Code System Problem Name Start Date End Date Status ELBOW AND ANKLE PAIN 07/06/2015 Active 360824777 SNOMED-CT C/O - a headache 08/10/2014 Active 79925355 SNOMED-CT Drug withdrawal seizure 04/2014 Active 400317835 SNOMED-CT Rib pain Unknown Active Medications RxNorm Medication Dose Route Instructions Indications Start Date End Date Status 247081 Acetaminophen 325 MG / Hydrocodone Bitartrate 10 MG Oral Tablet 1 tablet Oral orally every 4 to 6 hours as needed. for severe pain Active 728353 Acetaminophen 650 MG Oral Tablet 650 milligram Oral orally every 6 hours as needed. pain Active 435 Albuterol 1 puff Inhalation inhaled every 6 hours as needed. ( administer with spacer) shortness of breath or wheezing Active 596 Alprazolam 0.5 milligram Oral orally at hs as needed. for insomnia Active 310143 Citalopram 10 MG Oral Tablet 10 milligram Oral orally every day Active 4099 Estrogens, Conjugated (CUSTODIAL) 0.625 milligram Oral orally every day Active 614970 gabapentin 600 MG Oral Tablet 600 milligram Oral orally every 12 hours Active 569457 Lisinopril 40 MG Oral Tablet 40 milligram Oral orally every day Active 6918 Metoprolol 50 milligram Oral orally every day Active 7243290 Oxycodone Hydrochloride 10 MG Oral Tablet 10 milligram Oral orally every 4 to 6 hours as needed. for severe pain not to exceeed 5 daily Active 048259 solifenacin succinate 10 MG Oral Tablet 10 milligram Oral orally every day Active 392756 Zolpidem tartrate 10 MG Oral Tablet 10 milligram Oral orally every day at bedtime (takes 1/2 to 1 tab) Active Azithromycin 200 mg Oral orally every day for 10 days No Longer Active Cenestin 0.45mg No Longer Active 8281301 Estrogens, Conjugated (CUSTODIAL) 0.45 MG / medroxyprogesterone acetate 1.5 MG Oral Tablet 2 tablets Oral orally every day No Longer Active Hycodan Liquid 5 ml Oral orally three times daily cough, pneumonia No Longer Active Linisprolil 20mg No Longer Active Allergies Code Code System Allergy Substance Type Reaction Severity Start Date End Date Status 1191 RXNorm Aspirin Drug allergy Unknown 06/16/2009 Active 125383 RXNorm Flexeril Drug allergy Unknown 08/06/2012 Active 5640 RXNorm Ibuprofen Drug allergy Unknown 06/16/2009 Active 5933 RXNorm Iodine Drug allergy Unknown 08/06/2012 Active 418831 RXNorm Peanut Drug allergy Unknown 08/06/2012 Active RXNorm MISC-Other Allergy to substance Unknown 06/16/2009 Active Results Radiology Results Order: [id number] Elbow LT 3 views* Exam Completion Date:07/06/2015 15:05 INDICATION: fall and landed on left elbow. Pain with movement.Elbow LT 3 views: No acute fracture is seen. There is no significant elbow joint effusion. Theremay be mild soft tissue swelling about the radial head on the lateralprojection. Still no significant posttraumatic deformity is seen.Released By GLENNA MCINTYRE, MDDate: 07/08/2015 08:54 Vital Signs Vitals Value Date Body Temperature 97.6 F 07/06/2015 Respiratory Rate 18 07/06/2015 O2% BldC Oximetry 99 07/06/2015 BP Systolic 160 mmHg 07/06/2015 BP Diastolic 83 mmHg 07/06/2015 Height 63 in 07/06/2015 Weight Measured 102.99 lbs 07/06/2015 BSA (Body Surface Area) 1.30242 07/06/2015 BMI (Body Mass Index) 18.2 07/06/2015 Plan of Care * No data in [...]
--- OUTSIDE RECORDS SUMMARY | 2016-10-22 18:52 | XMS REPORT | Continuity of Care Document ---
Author Author [facility] Organization [facility] Address [address] [place] [address] ;ext= Care Team Providers Care Care Tech Name Role Phone Ehsan CHANDRA Admitting Physician Unavailable Ehsan CHANDRA Attending Physician Unavailable Hospital Admission Diagnosis * No data in the System Social History Element Description Code Description Smoking Status Code System Start Date End Date Smoking Status 281251157 Unknown if ever smoked SNOMED-CT Problems Code Code System Problem Name Start Date End Date Status HEADACHE, LEG PAIN 11/08/2015 Active VOMITING, HEADACHE 10/19/2015 Active BACK/NECK PAIN 08/30/2015 Active ELBOW AND ANKLE PAIN 07/06/2015 Active 734668237 SNOMED-CT C/O - a headache 08/10/2014 Active 79353618 SNOMED-CT Drug withdrawal seizure 04/2014 Active 634291936 SNOMED-CT Rib pain Unknown Active Medications RxNorm Medication Dose Route Instructions Indications Start Date End Date Status 435 Albuterol 1 puff Inhalation inhaled every 6 hours as needed. ( administer with spacer) shortness of breath or wheezing Active 596 Alprazolam 0.5 milligram Oral orally at hs as needed. for insomnia Active 4099 Estrogens, Conjugated (NURSING HOME) 0.625 milligram Oral orally every day Active 19780219 Lisinopril 40 MG Oral Tablet 40 milligram Oral orally every day Active 18 Metoprolol 50 milligram Oral orally every day Active 627597 Zolpidem tartrate 10 MG Oral Tablet 10 milligram Oral orally every day at bedtime (takes 1/2 to 1 tab) Active 265006 Acetaminophen 325 MG / Hydrocodone Bitartrate 10 [...] Longer Active Cenestin 0.45mg No Longer Active 470510 Citalopram 10 MG Oral Tablet 10 milligram Oral orally every day No Longer Active 5204376 Estrogens, Conjugated (NURSING HOME) 0.45 MG / medroxyprogesterone acetate 1.5 MG Oral Tablet 2 tablets Oral orally every day No Longer Active 364066 gabapentin 600 MG Oral Tablet 600 milligram Oral orally every 12 hours No Longer Active Hycodan Liquid 5 ml Oral orally three times daily cough, pneumonia No Longer Active Linisprolil 20mg No Longer Active 7563350 Oxycodone Hydrochloride 10 MG Oral Tablet 10 milligram Oral orally every 4 to 6 hours as needed. for severe pain not to exceeed 5 daily No Longer Active 358252 solifenacin succinate 10 MG Oral Tablet 10 milligram Oral orally every day No Longer Active Allergies Code Code System Allergy Substance Type Reaction Severity Start Date End Date Status 1191 RXNorm Aspirin Drug allergy Unknown 06/16/2009 Active 265135 RXNorm Benadryl Drug allergy Unknown 10/19/2015 Active 054006 RXNorm Flexeril Drug allergy Unknown 08/06/2012 Active 5640 RXNorm Ibuprofen Drug allergy Unknown 06/16/2009 Active 5933 RXNorm Iodine Drug allergy Unknown 08/06/2012 Active 335717 RXNorm Peanut Drug allergy Unknown 08/06/2012 Active RXNorm MISC-Other Allergy to substance Unknown 06/16/2009 Active Results Radiology Results Order: [id number] Foot RT 3 views* Exam Completion Date:11/08/2015 12:17 INDICATION: fell right fifth toe pain edemaRIGHT FOOT 3-VIEWS SUPINE (AP, INTERNAL OBLIQUE & LAT): No fracture or dislocation. No bony or soft tissue abnormality. The base ofthe fifth metatarsal is normal. The joint spaces are preserved. No erosions oraggressive inflammatory lesions.Released By JASIEL DONISate: 11/08/2015 12:46 Vital Signs Vitals Value Date Body Temperature 97.6 F 11/08/2015 Respiratory Rate 16 11/08/2015 O2% BldC Oximetry 95 11/08/2015 BP Systolic 160 mmHg 11/08/2015 BP Diastolic 95 mmHg 11/08/2015 Weight Measured 106.15 lbs 11/08/2015 Plan of Care * No data in [...]
--- OUTSIDE RECORDS SUMMARY | 2016-10-22 18:52 | XMS REPORT | Continuity of Care Document ---
Author Author [facility] Organization [facility] Address [address] [place] [address] ;ext= Care Team Providers Care Cloth Roll Winder Name Role Phone DR JOSE LUIS DOWELL Admitting Physician [phone] DR JOSE LUIS DOWELL Attending Physician [phone] Hospital Admission Diagnosis * No data in the System Social History Element Description Code Description Smoking Status Code System Start Date End Date Smoking Status [id number] Unknown if ever smoked SNOMED-CT Problems Code Code System Problem Name Start Date End Date Status [id number] SNOMED-CT Backache 03/31/2016 Active 616968711 SNOMED-CT Backache 03/14/2016 Active NECK, BACK, LEG PAIN 03/11/2016 Active HEADACHE, LEG PAIN 11/08/2015 Active VOMITING, HEADACHE 10/19/2015 Active BACK/NECK PAIN 08/30/2015 Active ELBOW AND ANKLE PAIN 07/06/2015 Active 830788973 SNOMED-CT C/O - a headache 08/10/2014 Active 94833567 SNOMED-CT Drug withdrawal seizure 04/2014 Active 099977828 SNOMED-CT Rib pain Unknown Active Medications RxNorm Medication Dose Route Instructions Indications Start Date End Date Status 435 Albuterol 1 puff Inhalation inhaled every 6 hours as needed. ( administer with spacer) shortness of breath or wheezing Active 596 Alprazolam 0.5 milligram Oral orally at hs as needed. for insomnia Active 4099 Estrogens, Conjugated (HALF-WAY) 0.625 milligram Oral orally every day Active 78041 gabapentin 100 milligram Oral orally every day (Dose unknown, pt unable to provide and pharmacy closed. --KKL) Active 41559 Lisinopril 40 milligram Oral orally every day Active 70904 zolpidem 10 milligram Oral orally every day at bedtime (takes 1/2 to 1 tab) Active Acetaminophen 650 milligram Oral orally every 6 hours as needed. pain No Longer Active 220010 Acetaminophen 325 MG / Hydrocodone Bitartrate 10 MG Oral Tablet 1 tablet Oral orally every 4 to 6 hours as needed. for severe pain No Longer Active Azithromycin 200 mg Oral orally every day for 10 days No Longer Active Cenestin 0.45mg No Longer Active 2556 Citalopram 10 milligram Oral orally every day No Longer Active 4630077 Estrogens, Conjugated (HALF-WAY) 0.45 MG / medroxyprogesterone acetate 1.5 MG Oral Tablet 2 tablets Oral orally every day No Longer Active 37255 gabapentin 600 milligram Oral orally every 12 [...] to exceeed 5 daily No Longer Active 268216 Solifenacin 10 milligram Oral orally every day No Longer Active Allergies Code Code System Allergy Substance Type Reaction Severity Start Date End Date Status 1191 RXNorm Aspirin Drug allergy Unknown 06/16/2009 Active 281430 RXNorm Benadryl Drug allergy Unknown 10/19/2015 Active 572441 RXNorm Flexeril Drug allergy Unknown 08/06/2012 Active 5640 RXNorm Ibuprofen Drug allergy Unknown 06/16/2009 Active 5933 RXNorm Iodine Drug allergy Unknown 08/06/2012 Active 816819 RXNorm Peanut Drug allergy Unknown 08/06/2012 Active [...] 100 lbs 03/31/2016 BSA (Body Surface Area) 1.94553 03/31/2016 BMI (Body Mass Index) 17.2 03/31/2016 [...]
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
--- OUTSIDE RECORDS SUMMARY | 2016-10-22 18:52 | XMS REPORT | Continuity of Care Document ---
Author Author [facility] Organization [facility] Address [address] [place] [address] ;ext= Care Team Providers Care Branch Maker Name Role Phone Ehsan MARQUEZ Admitting Physician Unavailable Ehsan MARQUEZ Attending Physician Unavailable Hospital Admission Diagnosis Code Admission Diagnosis Date [id number] Otalgia Social History Element Description Code Description Smoking Status Code System Start Date End Date Smoking Status [id number] Heavy tobacco smoker SNOMED-CT Problems Code Code System Problem Name Start Date End Date Status BACK/NECK PAIN 08/30/2015 Active ELBOW AND ANKLE PAIN 07/06/2015 Active 383405996 SNOMED-CT C/O - a headache 08/10/2014 Active 50684956 SNOMED-CT Drug withdrawal seizure 04/2014 Active 541420556 SNOMED-CT Rib pain Unknown Active Medications RxNorm Medication Dose Route Instructions Indications Start Date End Date Status 435 Albuterol 1 puff Inhalation inhaled every 6 hours as needed. ( administer with spacer) shortness of breath or wheezing Active 596 Alprazolam 0.5 milligram Oral orally at hs as needed. for insomnia Active 4099 Estrogens, Conjugated (SHELTER) 0.625 milligram Oral orally every day Active 505990 Lisinopril 40 MG Oral Tablet 40 milligram Oral orally every day Active 18 Metoprolol 50 milligram Oral orally every day Active 929784 Zolpidem tartrate 10 MG Oral Tablet 10 milligram Oral orally every day at bedtime (takes 1/2 to 1 tab) Active 028067 Acetaminophen 325 MG / Hydrocodone Bitartrate 10 [...] Longer Active Cenestin 0.45mg No Longer Active 813913 Citalopram 10 MG Oral Tablet 10 milligram Oral orally every day No Longer Active 7828875 Estrogens, Conjugated (SHELTER) 0.45 MG / medroxyprogesterone acetate 1.5 MG Oral Tablet 2 tablets Oral orally every day No Longer Active 605971 gabapentin 600 MG Oral Tablet 600 milligram Oral orally every 12 hours No Longer Active Hycodan Liquid 5 ml Oral orally three times daily cough, pneumonia No Longer Active Linisprolil 20mg No Longer Active 6392062 Oxycodone Hydrochloride 10 MG Oral Tablet 10 milligram Oral orally every 4 to 6 hours as needed. for severe pain not to exceeed 5 daily No Longer Active 224993 solifenacin succinate 10 MG Oral Tablet 10 milligram Oral orally every day No Longer Active Allergies Code Code System Allergy Substance Type Reaction Severity Start Date End Date Status 1191 RXNorm Aspirin Drug allergy Unknown 06/16/2009 Active 708447 RXNorm Flexeril Drug allergy Unknown 08/06/2012 Active 5640 RXNorm Ibuprofen Drug allergy Unknown 06/16/2009 Active 5933 RXNorm Iodine Drug allergy Unknown 08/06/2012 Active 066257 RXNorm Peanut Drug allergy Unknown 08/06/2012 Active RXNorm MISC-Other Allergy to substance Unknown 06/16/2009 Active Results * No data in the system Vital Signs Vitals Value Date Body Temperature 98.3 F 07/28/2015 Respiratory Rate 16 07/28/2015 O2% BldC Oximetry 98 07/28/2015 BP Systolic 161 mmHg 07/28/2015 BP Diastolic 87 mmHg 07/28/2015 Height 64 in 07/28/2015 Weight Measured 105.16 lbs 07/28/2015 BSA (Body Surface Area) 1.89343 07/28/2015 BMI (Body Mass Index) 18.1 07/28/2015 Plan of Care * No data in the system Procedures * No data in the system Encounters Date Code Diagnosis Status (ICD10) - H9201 OTALGIA RIGHT EAR Active Immunizations Vaccine Code Code System Vaccine Name Date Status 16 CVX influenza virus vaccine, whole virus 05/03/2012 Completed Functional Status * No data in the system Hospital Discharge Instructions * No data in the system
--- OUTSIDE RECORDS SUMMARY | 2016-10-22 18:52 | XMS REPORT | Continuity of Care Document ---
Author Author [facility] Organization [facility] Address [address] [place] [address] ;ext= Care Team Providers Care Drain Layer Name Role Phone Ehsan CHANDRA Admitting Physician Unavailable Ehsan CHANDRA Attending Physician Unavailable Hospital Admission Diagnosis Code Admission Diagnosis Date [id number] Neck pain Social History Element Description Code Description Smoking Status Code System Start Date End Date Smoking Status [id number] Heavy tobacco smoker SNOMED-CT Problems Code Code System Problem Name Start Date End Date Status 094082871 SNOMED-CT Backache 03/31/2016 Active 980244096 SNOMED-CT Backache 03/14/2016 Active NECK, BACK, LEG PAIN 03/11/2016 Active HEADACHE, LEG PAIN 11/08/2015 Active VOMITING, HEADACHE 10/19/2015 Active BACK/NECK PAIN 08/30/2015 Active ELBOW AND ANKLE PAIN 07/06/2015 Active 223393293 SNOMED-CT C/O - a headache 08/10/2014 Active 32512088 SNOMED-CT Drug withdrawal seizure 04/2014 Active 006741510 SNOMED-CT Rib pain Unknown Active Medications RxNorm Medication Dose Route Instructions Indications Start Date End Date Status 435 Albuterol 1 puff Inhalation inhaled every 6 hours as needed. ( administer with spacer) shortness of breath or wheezing Active 596 Alprazolam 0.5 milligram Oral orally at hs as needed. for insomnia Active 4099 Estrogens, Conjugated (GROUP HOME) 0.625 milligram Oral orally every day Active 41777 gabapentin 100 milligram Oral orally every day (Dose unknown, pt unable to provide and pharmacy closed. --KKL) Active 14771 Lisinopril 40 milligram Oral orally every day Active 84161 zolpidem 10 milligram Oral orally every day at bedtime (takes 1/2 to 1 tab) Active Acetaminophen 650 milligram Oral orally every 6 hours as needed. pain No Longer Active 834620 Acetaminophen 325 MG / Hydrocodone Bitartrate 10 MG Oral Tablet 1 tablet Oral orally every 4 to 6 hours as needed. for severe pain No Longer Active Azithromycin 200 mg Oral orally every day for 10 days No Longer Active Cenestin 0.45mg No Longer Active 2556 Citalopram 10 milligram Oral orally every day No Longer Active 5516390 Estrogens, Conjugated (GROUP HOME) 0.45 MG / medroxyprogesterone acetate 1.5 MG Oral Tablet 2 tablets Oral orally every day No Longer Active 52819 gabapentin 600 milligram Oral orally every 12 [...] to exceeed 5 daily No Longer Active 026243 Solifenacin 10 milligram Oral orally every day No Longer Active Allergies Code Code System Allergy Substance Type Reaction Severity Start Date End Date Status 1191 RXNorm Aspirin Drug allergy Unknown 06/16/2009 Active 523604 RXNorm Benadryl Drug allergy Unknown 10/19/2015 Active 699774 RXNorm Flexeril Drug allergy Unknown 08/06/2012 Active 5640 RXNorm Ibuprofen Drug allergy Unknown 06/16/2009 Active 5933 RXNorm Iodine Drug allergy Unknown 08/06/2012 Active 649004 RXNorm Peanut Drug allergy Unknown 08/06/2012 Active [...] Encounters Date Code Diagnosis Status (ICD10) - M542 CERVICALGIA Active Immunizations Vaccine Code Code System Vaccine Name Date Status 16 CVX influenza virus vaccine, whole virus 05/03/2012 Completed 88 CVX influenza virus vaccine, NOS 04/27/2015 Completed Functional Status * No data in the system Hospital Discharge Instructions * No data in the system
--- OUTSIDE RECORDS SUMMARY | 2016-10-22 18:52 | XMS REPORT | Continuity of Care Document ---
Author Author [facility] Organization [facility] Address [address] [place] [address] ;ext= Care Team Providers Care Social Studies Teacher Name Role Phone Ehsan CHANDRA Admitting Physician Unavailable Ehsan CHANDRA Attending Physician Unavailable Hospital Admission Diagnosis Code Admission Diagnosis Date [id number] Contusion of toe Social History Element Description Code Description Smoking Status Code System Start Date End Date Smoking Status 335872912 Unknown if ever smoked SNOMED-CT Problems Code Code System Problem Name Start Date End Date Status 073494350 SNOMED-CT Backache 03/31/2016 Active 051062058 SNOMED-CT Backache 03/14/2016 Active NECK, BACK, LEG PAIN 03/11/2016 Active HEADACHE, LEG PAIN 11/08/2015 Active VOMITING, HEADACHE 10/19/2015 Active BACK/NECK PAIN 08/30/2015 Active ELBOW AND ANKLE PAIN 07/06/2015 Active 872164985 SNOMED-CT C/O - a headache 08/10/2014 Active 45649768 SNOMED-CT Drug withdrawal seizure 04/2014 Active 524770045 SNOMED-CT Rib pain Unknown Active Medications RxNorm Medication Dose Route Instructions Indications Start Date End Date Status 435 Albuterol 1 puff Inhalation inhaled every 6 hours as needed. ( administer with spacer) shortness of breath or wheezing Active 596 Alprazolam 0.5 milligram Oral orally at hs as needed. for insomnia Active 4099 Estrogens, Conjugated (DETENTION) 0.625 milligram Oral orally every day Active 42306 gabapentin 100 milligram Oral orally every day (Dose unknown, pt unable to provide and pharmacy closed. --KKL) Active 24069 Lisinopril 40 milligram Oral orally every day Active 19399 zolpidem 10 milligram Oral orally every day at bedtime (takes 1/2 to 1 tab) Active Acetaminophen 650 milligram Oral orally every 6 hours as needed. pain No Longer Active 866257 Acetaminophen 325 MG / Hydrocodone Bitartrate 10 MG Oral Tablet 1 tablet Oral orally every 4 to 6 hours as needed. for severe pain No Longer Active Azithromycin 200 mg Oral orally every day for 10 days No Longer Active Cenestin 0.45mg No Longer Active 2556 Citalopram 10 milligram Oral orally every day No Longer Active 4397355 Estrogens, Conjugated (DETENTION) 0.45 MG / medroxyprogesterone acetate 1.5 MG Oral Tablet 2 tablets Oral orally every day No Longer Active 89043 gabapentin 600 milligram Oral orally every 12 [...] to exceeed 5 daily No Longer Active 650476 Solifenacin 10 milligram Oral orally every day No Longer Active Allergies Code Code System Allergy Substance Type Reaction Severity Start Date End Date Status 1191 RXNorm Aspirin Drug allergy Unknown 06/16/2009 Active 502763 RXNorm Benadryl Drug allergy Unknown 10/19/2015 Active 951941 RXNorm Flexeril Drug allergy Unknown 08/06/2012 Active 5640 RXNorm Ibuprofen Drug allergy Unknown 06/16/2009 Active 5933 RXNorm Iodine Drug allergy Unknown 08/06/2012 Active 044160 RXNorm Peanut Drug allergy Unknown 08/06/2012 Active RXNorm MISC-Other Allergy to substance Unknown 06/16/2009 Active Results Radiology Results Order: [id number] Foot RT 3 views* Exam Completion Date:11/08/2015 12:17 INDICATION: fell right fifth toe pain edemaRIGHT FOOT 3-VIEWS SUPINE (AP, INTERNAL OBLIQUE & LAT): No fracture or dislocation. No bony or soft tissue abnormality. The base ofthe fifth metatarsal is normal. The joint spaces are preserved. No erosions oraggressive inflammatory lesions.Released By JASIEL DONISate: 11/08/2015 12:46 Vital Signs Vitals Value Date BP Systolic 160 mmHg 11/08/2015 BP Diastolic 95 mmHg 11/08/2015 Weight Measured 106.15 lbs 11/08/2015 Body Temperature 97.6 F 11/08/2015 Respiratory Rate 16 11/08/2015 O2% BldC Oximetry 95 11/08/2015 Plan of Care * No data in the system Procedures * No data in the system Encounters Date Code Diagnosis Status (ICD10) - K86632S CONTUS RT LESR TOES W/O DMG NL INIT Active Immunizations Vaccine Code Code System Vaccine Name Date Status 16 CVX influenza virus vaccine, whole virus 05/03/2012 Completed 88 CVX influenza virus vaccine, NOS 04/27/2015 Completed Functional Status * No data in the system Hospital Discharge Instructions * No data in the system
--- OUTSIDE RECORDS SUMMARY | 2016-10-22 18:52 | XMS REPORT | Continuity of Care Document ---
Author Author [facility] Organization [facility] Address [address] [place] [address] ;ext= Care Team Providers Care Silk Screener Name Role Phone Ehsan MARQUEZ Admitting Physician Unavailable Ehsan MARQUEZ Attending Physician Unavailable Hospital Admission Diagnosis * No data in the System Social History Element Description Code Description Smoking Status Code System Start Date End Date Smoking Status [id number] Heavy tobacco smoker SNOMED-CT Problems Code Code System Problem Name Start Date End Date Status VOMITING, HEADACHE 10/19/2015 Active BACK/NECK PAIN 08/30/2015 Active ELBOW AND ANKLE PAIN 07/06/2015 Active 568106329 SNOMED-CT C/O - a headache 08/10/2014 Active 78347067 SNOMED-CT Drug withdrawal seizure 04/2014 Active 980696956 SNOMED-CT Rib pain Unknown Active Medications RxNorm Medication Dose Route Instructions Indications Start Date End Date Status 435 Albuterol 1 puff Inhalation inhaled every 6 hours as needed. ( administer with spacer) shortness of breath or wheezing Active 596 Alprazolam 0.5 milligram Oral orally at hs as needed. for insomnia Active 4099 Estrogens, Conjugated ([facility]) 0.625 milligram Oral orally every day Active 19780219 Lisinopril 40 MG Oral Tablet 40 milligram Oral orally every day Active 18 Metoprolol 50 milligram Oral orally every day Active 154392 Zolpidem tartrate 10 MG Oral Tablet 10 milligram Oral orally every day at bedtime (takes 1/2 to 1 tab) Active 573978 Acetaminophen 325 MG / Hydrocodone Bitartrate 10 [...] Longer Active Cenestin 0.45mg No Longer Active 516294 Citalopram 10 MG Oral Tablet 10 milligram Oral orally every day No Longer Active 4973642 Estrogens, Conjugated ([facility]) 0.45 MG / medroxyprogesterone acetate 1.5 MG Oral Tablet 2 tablets Oral orally every day No Longer Active 657981 gabapentin 600 MG Oral Tablet 600 milligram Oral orally every 12 hours No Longer Active Hycodan Liquid 5 ml Oral orally three times daily cough, pneumonia No Longer Active Linisprolil 20mg No Longer Active 0070306 Oxycodone Hydrochloride 10 MG Oral Tablet 10 milligram Oral orally every 4 to 6 hours as needed. for severe pain not to exceeed 5 daily No Longer Active 274715 solifenacin succinate 10 MG Oral Tablet 10 milligram Oral orally every day No Longer Active Allergies Code Code System Allergy Substance Type Reaction Severity Start Date End Date Status 1191 RXNorm Aspirin Drug allergy Unknown 06/16/2009 Active 011863 RXNorm Benadryl Drug allergy Unknown 10/19/2015 Active 582014 RXNorm Flexeril Drug allergy Unknown 08/06/2012 Active 5640 RXNorm Ibuprofen Drug allergy Unknown 06/16/2009 Active 5933 RXNorm Iodine Drug allergy Unknown 08/06/2012 Active 250945 RXNorm Peanut Drug allergy Unknown 08/06/2012 Active RXNorm MISC-Other Allergy to substance Unknown 06/16/2009 Active Results Laboratory Results Order: C Reactive Protein Legend: D=Delta, H=High, L=Low, HH=Critical High, LL=Critical Low, AA=Critical Alpha-Numeric, C=Corrected, A=Abnormal LOINC Test Result Flag Range Units Date 1987-11 1CRP SerPl-mCnc <0.50 mg/dl <=0.50 mg/dl 10/19/2015 17:52 * Performing Lab Footnotes:* [id number] [address] [place] [address] - [place]UDI CRUM Order: CBC With Automated Differential Legend: D=Delta, H=High, L=Low, HH=Critical High, LL=Critical Low, AA=Critical Alpha-Numeric, C=Corrected, A=Abnormal LOINC Test Result Flag Range Units Date 6689-08 1WBC # Bld Auto 6.5 4.5-11.0 10^3/mm3 10/19/2015 17:52 06720-1 1Retics # Auto 3.95 L 4.00-5.20 10^6/mm3 10/19/2015 17:52 24480-3 1Hgb BldV-mCnc 12.8 12.0-16.0 g/dl 10/19/2015 17:52 4544-3 1Hct VFr Bld Auto 36.7 36.0-46.0 % 10/19/2015 17:52 787-2 1MCV RBC Auto 92.9 82.0-100.0 10^6/mm3 10/19/2015 17:52 785-6 1MCH RBC Qn Auto 32.4 27.0-34.0 pg 10/19/2015 17:52 786-4 1MCHC RBC Auto-mCnc 34.9 32.0-36.0 g/dl 10/19/2015 17:52 788-0 1RDW RBC Auto-Rto 12.1 11.7-15.0 % 10/19/2015 17:52 777-3 1Platelet # Bld Auto 191 150-450 10^3/mm3 10/19/2015 17:52 21443-6 1PMV Bld 9.9 7.4-10.4 10/19/2015 17:52 13019-3 1Neutrophils # CSF 69.8 40.0-74.0 % 10/19/2015 17:52 1LYMPH% 23.1 14.0-46.0 % 10/19/2015 17:52 36453-4 1CD43 Ag Tiss Ql ImStn 6.7 4.0-13.0 % 10/19/2015 17:52 711-2 1Eosinophil # Bld Auto 0.2 0.0-4.0 % 10/19/2015 17:52 704-7 1Basophils # Bld Auto 0.2 <=3.0 % 10/19/2015 17:52 751-8 1Neutrophils # Bld Auto 4.6 1.8-7.8 10/19/2015 17:52 26884-8 1Lymphocytes # Bld 1.5 0.7-4.5 10/19/2015 17:52 67407-6 1CD43 Ag Tiss Ql ImStn 0.4 0.1-1.0 10/19/2015 17:52 711-2 1Eosinophil # Bld Auto 0.01 <=4.00 10/19/2015 17:52 704-7 1Basophils # Bld Auto 0.01 <=0.20 10/19/2015 17:52 2MANDIFF N 10/19/2015 17:52 65661-5 2RBC Bld Auto N 10/19/2015 17:52 * Performing Lab Footnotes:* [facility] [id number] - [address] - YUDI CRUM * [facility] - [id number] - [address] - Metal Milling Machine Operator:, Yudi Crum MD - YUDI CRUM Order: Comprehensive Metabolic Panel Legend: D=Delta, H=High, L=Low, HH=Critical High, LL=Critical Low, AA=Critical Alpha-Numeric, C=Corrected, A=Abnormal LOINC Test Result Flag Range Units Date 7 1Glucose SerPl-mCnc 123 H 70-105 mg/dl 10/19/2015 17:52 3094-0 1BUN SerPl-mCnc 12 7-25 mg/dl 10/19/2015 17:52 2160-0 1Creat SerPl-mCnc 0.5 L 0.6-1.3 mg/dl 10/19/2015 17:52 24427-2 1Creat/Urea nit SerPl 24 13-39 10/19/2015 17:52 2951-2 1Sodium SerPl-sCnc 136 135-145 mmol/L 10/19/2015 17:52 97087-9 1Potassium SerPl-mCnc 3.5 3.5-5.1 mmol/L 10/19/2015 17:52 2075-0 1Chloride SerPl-sCnc 99 98-107 mmol/l 10/19/2015 17:52 2028-9 1CO2 SerPl-sCnc 29 21-31 mmol/l 10/19/2015 17:52 56146-8 1Anion Gap SerPl-sCnc 12 9-16 mmol/L 10/19/2015 17:52 2692-2 1Osmolality SerPl 283 277-298 mOsm/kg 10/19/2015 17:52 18081-0 1Calcium SerPl-mCnc 8.8 8.2-10.0 mg/dl 10/19/2015 17:52 1742-6 1ALT SerPl-cCnc 32 7-52 IU/L 10/19/2015 17:52 1920-8 1AST SerPl-cCnc 23 13-39 IU/L 10/19/2015 17:52 1715-2 1ACP SerPl-cCnc 47 34-104 U/L 10/19/2015 17:52 1975-2 1Bilirub SerPl-mCnc 0.6 0.3-1.0 mg/dl 10/19/2015 17:52 2885-2 1Prot SerPl-mCnc 6.5 6.0-8.3 g/dL 10/19/2015 17:52 1751-7 1Albumin SerPl-mCnc 3.8 3.5-5.7 g/dl 10/19/2015 17:52 2336-6 1Globulin Ser-mCnc 2.7 2.3-3.2 g/dL 10/19/2015 17:52 1759-0 1Albumin/Glob SerPl 1.4 1.2-2.0 10/19/2015 17:52 1GFR 120 H 60-116 GFRunits 10/19/2015 17:52 * Performing Lab Footnotes:* [facility] [id number] - [address] - YUDI CRUM Order: Lipase Legend: D=Delta, H=High, L=Low, HH=Critical High, LL=Critical Low, AA=Critical Alpha-Numeric, C=Corrected, A=Abnormal LOINC Test Result Flag Range Units Date 3040-3 1Lipase SerPl-cCnc 21 11-82 U/L 10/19/2015 17:52 * Performing Lab Footnotes:* [facility] - [id number] - [address] - [place] CRUM Order: Urinalysis Legend: D=Delta, H=High, L=Low, HH=Critical High, LL=Critical Low, AA=Critical Alpha-Numeric, C=Corrected, A=Abnormal LOINC Test Result Flag Range Units Date 5778-6 1Color Ur Yellow 10/19/2015 17:40 93669-0 1Clarity Ur Clear 10/19/2015 17:40 2966-0 1Sp Gr 24h Ur 1.020 1.005-1.030 10/19/2015 17:40 2756-5 1pH Ur 6.5 5.0-7.0 10/19/2015 17:40 19902-8 1Leukocyte esterase Ur-aCnc Negative NEGATIVE 10/19/2015 17: 40 78043-7 1Nitrite Ur Ql Strip.auto Negative NEGATIVE 10/19/2015 17:40 77835-3 1Prot Tiss-mCnt Trace * NEGATIVE 10/19/2015 17:40 2349-9 1Glucose Ur Ql Negative NEGATIVE 10/19/2015 17:40 88218-5 1MEK Ur-mCnc Negative NEGATIVE 10/19/2015 17:40 1977-8 1Bilirub Ur Ql Negative NEGATIVE 10/19/2015 17:40 66561-3 1Urobilinogen Ur Ql 0.2 <=1.0 10/19/2015 17:40 933-2 1Bld Prod Typ BPU Trace-intact * NEGATIVE 10/19/2015 17:40 28313-6 1Micro UrnS N 10/19/2015 17:40 * Performing Lab Footnotes:* [facility] - [id number] - [address] [place], [place] [address] [facility] - YUDI CRUM Vital Signs Vitals Value Date Body Temperature 97.9 F 10/19/2015 Respiratory Rate 16 10/19/2015 O2% BldC Oximetry 94 10/19/2015 BP Systolic 190 mmHg 10/19/2015 BP Diastolic 120 mmHg 10/19/2015 Plan of Care * No data in [...]
--- OUTSIDE RECORDS SUMMARY | 2016-10-22 18:52 | XMS REPORT | Continuity of Care Document ---
Author Author [facility] Organization [facility] Address [address] [place] [address] ;ext= Care Team Providers Care Insurance Case Manager Name Role Phone Ehsan MARQUEZ Admitting Physician Unavailable Ehsan MARQUEZ Attending Physician Unavailable Hospital Admission Diagnosis * No data in the System Social History Element Description Code Description Smoking Status Code System Start Date End Date Smoking Status [id number] Heavy tobacco smoker SNOMED-CT Problems Code Code System Problem Name Start Date End Date Status ELBOW AND ANKLE PAIN 07/06/2015 Active 499432749 SNOMED-CT C/O - a headache 08/10/2014 Active 82935910 SNOMED-CT Drug withdrawal seizure 04/2014 Active 054874614 SNOMED-CT Rib pain Unknown Active Medications RxNorm Medication Dose Route Instructions Indications Start Date End Date Status 435 Albuterol 1 puff Inhalation inhaled every 6 hours as needed. ( administer with spacer) shortness of breath or wheezing Active 596 Alprazolam 0.5 milligram Oral orally at hs as needed. for insomnia Active 4099 Estrogens, Conjugated ([facility]) 0.625 milligram Oral orally every day Active 220235 Lisinopril 40 MG Oral Tablet 40 milligram Oral orally every day Active 6918 Metoprolol 50 milligram Oral orally every day Active 227082 Zolpidem tartrate 10 MG Oral Tablet 10 milligram Oral orally every day at bedtime (takes 1/2 to 1 tab) Active 615563 Acetaminophen 325 MG / Hydrocodone Bitartrate 10 [...] Longer Active Cenestin 0.45mg No Longer Active 275625 Citalopram 10 MG Oral Tablet 10 milligram Oral orally every day No Longer Active 4067733 Estrogens, Conjugated ([facility]) 0.45 MG / medroxyprogesterone acetate 1.5 MG Oral Tablet 2 tablets Oral orally every day No Longer Active 036789 gabapentin 600 MG Oral Tablet 600 milligram Oral orally every 12 hours No Longer Active Hycodan Liquid 5 ml Oral orally three times daily cough, pneumonia No Longer Active Linisprolil 20mg No Longer Active 5596639 Oxycodone Hydrochloride 10 MG Oral Tablet 10 milligram Oral orally every 4 to 6 hours as needed. for severe pain not to exceeed 5 daily No Longer Active 898096 solifenacin succinate 10 MG Oral Tablet 10 milligram Oral orally every day No Longer Active Allergies Code Code System Allergy Substance Type Reaction Severity Start Date End Date Status 1191 RXNorm Aspirin Drug allergy Unknown 06/16/2009 Active 044137 RXNorm Flexeril Drug allergy Unknown 08/06/2012 Active 5640 RXNorm Ibuprofen Drug allergy Unknown 06/16/2009 Active 5933 RXNorm Iodine Drug allergy Unknown 08/06/2012 Active 367837 RXNorm Peanut Drug allergy Unknown 08/06/2012 Active [...] 105.16 lbs 07/28/2015 BSA (Body Surface Area) 1.53157 07/28/2015 BMI (Body Mass Index) 18.1 07/28/2015 [...]
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
--- OUTSIDE RECORDS SUMMARY | 2016-10-22 18:53 | XMS REPORT | Continuity of Care Document ---
Author Author [facility] Organization [facility] Address [address] [place] [address] ;ext= Care Team Providers Care Road Consultant Name Role Phone BOLIVAR RANGEL Admitting Physician Unavailable BOLIVAR RANGEL Attending Physician Unavailable Hospital Admission Diagnosis Code Admission Diagnosis Date [id number] Bite - wound Social History Element Description Code Description Smoking Status Code System Start Date End Date Smoking Status [id number] Light tobacco smoker SNOMED-CT Problems Code Code System Problem Name Start Date End Date Status ELBOW AND ANKLE PAIN 07/06/2015 Active 531973649 SNOMED-CT C/O - a headache 08/10/2014 Active 39790607 SNOMED-CT Drug withdrawal seizure 04/2014 Active 227590379 SNOMED-CT Rib pain Unknown Active Medications RxNorm Medication Dose Route Instructions Indications Start Date End Date Status 435 Albuterol 1 puff Inhalation inhaled every 6 hours as needed. ( administer with spacer) shortness of breath or wheezing Active 596 Alprazolam 0.5 milligram Oral orally at hs as needed. for insomnia Active 4099 Estrogens, Conjugated ([facility]) 0.625 milligram Oral orally every day Active 862302 Lisinopril 40 MG Oral Tablet 40 milligram Oral orally every day Active 6918 Metoprolol 50 milligram Oral orally every day Active 722135 Zolpidem tartrate 10 MG Oral Tablet 10 milligram Oral orally every day at bedtime (takes 1/2 to 1 tab) Active 583897 Acetaminophen 325 MG / Hydrocodone Bitartrate 10 MG Oral Tablet 1 tablet Oral orally every 4 to 6 hours as needed. for severe pain No Longer Active 836163 Acetaminophen 650 MG Oral Tablet 650 milligram Oral orally every 6 hours as needed. pain No Longer Active Azithromycin 200 mg Oral orally every day for 10 days No Longer Active Cenestin 0.45mg No Longer Active 173503 Citalopram 10 MG Oral Tablet 10 milligram Oral orally every day No Longer Active 0666975 Estrogens, Conjugated ([facility]) 0.45 MG / medroxyprogesterone acetate 1.5 MG Oral Tablet 2 tablets Oral orally every day No Longer Active 225101 gabapentin 600 MG Oral Tablet 600 milligram Oral orally every 12 hours No Longer Active Hycodan Liquid 5 ml Oral orally three times daily cough, pneumonia No Longer Active Linisprolil 20mg No Longer Active 1036820 Oxycodone Hydrochloride 10 MG Oral Tablet 10 milligram Oral orally every 4 to 6 hours as needed. for severe pain not to exceeed 5 daily No Longer Active 842984 solifenacin succinate 10 MG Oral Tablet 10 milligram Oral orally every day No Longer Active Allergies Code Code System Allergy Substance Type Reaction Severity Start Date End Date Status 1191 RXNorm Aspirin Drug allergy Unknown 06/16/2009 Active 666536 RXNorm Flexeril Drug allergy Unknown 08/06/2012 Active 5640 RXNorm Ibuprofen Drug allergy Unknown 06/16/2009 Active 5933 RXNorm Iodine Drug allergy Unknown 08/06/2012 Active 610301 RXNorm Peanut Drug allergy Unknown 08/06/2012 Active RXNorm MISC-Other Allergy to substance Unknown 06/16/2009 Active Results Radiology Results Order: [id number] Knee RT 3 views* Exam Completion Date:07/22/2015 13:09 Indication: Knee painRIGHT KNEE 3-VIEWS SUPINE (AP, INTERNAL OBL & LAT): COMPARISON: NoneFINDINGS: There is no evidence of fracture, dislocation, or joint narrowing.IMPRESSION: Negative x-raysReleased By JASIEL TAYLORate : 07/22/2015 14:55 Order: [id number] Ankle RT 3 views* Exam Completion Date:07/22/2015 13:09 INDICATION: Right ankle pain RIGHT ANKLE 3-VIEWS SUPINE (AP, MORTISE & LAT): COMPARISON: NoneFINDINGS: There is no evidence of fracture, dislocation, or joint narrowing.IMPRESSION: Negative x-raysReleased By JASIEL TAYLORate : 07/22/2015 14:54 Vital Signs Vitals Value Date Body Temperature 97.8 F 07/22/2015 Respiratory Rate 18 07/22/2015 O2% BldC Oximetry 96 07/22/2015 BP Systolic 159 mmHg 07/22/2015 BP Diastolic 97 mmHg 07/22/2015 Plan of Care * No data in the system Procedures * No data in the system Encounters Date Code Diagnosis Status (ICD10) - [id number] OPEN BITE RIGHT KNEE INITIAL ENC Active Immunizations Vaccine Code Code System Vaccine Name Date Status 16 CVX influenza virus vaccine, whole virus 05/03/2012 Completed Functional Status * No data in the system Hospital Discharge Instructions * No data in the system
--- OUTSIDE RECORDS SUMMARY | 2016-10-22 18:53 | XMS REPORT | Continuity of Care Document ---
Author Author [facility] Organization [facility] Address [address] [place] [address] ;ext= Care Team Providers Care Gang Drill Operator Name Role Phone Ehsan CHANDRA Admitting Physician Unavailable Ehsan CHANDRA Attending Physician Unavailable Hospital Admission Diagnosis Code Admission Diagnosis Date [id number] Neck pain Social History Element Description Code Description Smoking Status Code System Start Date End Date Smoking Status [id number] Heavy tobacco smoker SNOMED-CT Problems Code Code System Problem Name Start Date End Date Status BACK/NECK PAIN 08/30/2015 Active ELBOW AND ANKLE PAIN 07/06/2015 Active 672716440 SNOMED-CT C/O - a headache 08/10/2014 Active 33158917 SNOMED-CT Drug withdrawal seizure 04/2014 Active 668859096 SNOMED-CT Rib pain Unknown Active Medications RxNorm Medication Dose Route Instructions Indications Start Date End Date Status 435 Albuterol 1 puff Inhalation inhaled every 6 hours as needed. ( administer with spacer) shortness of breath or wheezing Active 596 Alprazolam 0.5 milligram Oral orally at hs as needed. for insomnia Active 4099 Estrogens, Conjugated (INTERMEDIATE) 0.625 milligram Oral orally every day Active 19780219 Lisinopril 40 MG Oral Tablet 40 milligram Oral orally every day Active 18 Metoprolol 50 milligram Oral orally every day Active 624594 Zolpidem tartrate 10 MG Oral Tablet 10 milligram Oral orally every day at bedtime (takes 1/2 to 1 tab) Active 905605 Acetaminophen 325 MG / Hydrocodone Bitartrate 10 [...] Longer Active Cenestin 0.45mg No Longer Active 714989 Citalopram 10 MG Oral Tablet 10 milligram Oral orally every day No Longer Active 8524534 Estrogens, Conjugated (INTERMEDIATE) 0.45 MG / medroxyprogesterone acetate 1.5 MG Oral Tablet 2 tablets Oral orally every day No Longer Active 915159 gabapentin 600 MG Oral Tablet 600 milligram Oral orally every 12 hours No Longer Active Hycodan Liquid 5 ml Oral orally three times daily cough, pneumonia No Longer Active Linisprolil 20mg No Longer Active 7515226 Oxycodone Hydrochloride 10 MG Oral Tablet 10 milligram Oral orally every 4 to 6 hours as needed. for severe pain not to exceeed 5 daily No Longer Active 983282 solifenacin succinate 10 MG Oral Tablet 10 milligram Oral orally every day No Longer Active Allergies Code Code System Allergy Substance Type Reaction Severity Start Date End Date Status 1191 RXNorm Aspirin Drug allergy Unknown 06/16/2009 Active 624746 RXNorm Flexeril Drug allergy Unknown 08/06/2012 Active 5640 RXNorm Ibuprofen Drug allergy Unknown 06/16/2009 Active 5933 RXNorm Iodine Drug allergy Unknown 08/06/2012 Active 659503 RXNorm Peanut Drug allergy Unknown 08/06/2012 Active [...] 103.17 lbs 08/31/2015 BSA (Body Surface Area) 1.49511 08/31/2015 BMI (Body Mass Index) 18.2 08/31/2015 [...]
--- OUTSIDE RECORDS SUMMARY | 2016-10-22 18:53 | XMS REPORT | Continuity of Care Document ---
Author Author [facility] Organization [facility] Address [address] [place] [address] ;ext= Care Team Providers Care Manager Review Name Role Phone Ehsan CHANDRA Admitting Physician Unavailable Ehsan CHANDRA Attending Physician Unavailable Hospital Admission Diagnosis Code Admission Diagnosis Date [id number] Contusion of elbow Social History Element Description Code Description Smoking Status Code System Start Date End Date Smoking Status [id number] Heavy tobacco smoker SNOMED-CT Problems Code Code System Problem Name Start Date End Date Status ELBOW AND ANKLE PAIN 07/06/2015 Active 633598505 SNOMED-CT C/O - a headache 08/10/2014 Active 77796308 SNOMED-CT 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 ( administer with spacer) shortness of breath or wheezing Active 596 Alprazolam 0.5 milligram Oral orally at hs as needed. for insomnia Active 4099 Estrogens, Conjugated (SNF) 0.625 milligram Oral orally every day Active 316638 Lisinopril 40 MG Oral Tablet 40 milligram Oral orally every day Active 18 Metoprolol 50 milligram Oral orally every day Active 221914 Zolpidem tartrate 10 MG Oral Tablet 10 milligram Oral orally every day at bedtime (takes 1/2 to 1 tab) Active 407998 Acetaminophen 325 MG / Hydrocodone Bitartrate 10 MG Oral Tablet 1 tablet Oral orally every 4 to 6 hours as needed. for severe pain No Longer Active 673081 Acetaminophen 650 MG Oral Tablet 650 milligram Oral orally every 6 hours as needed. pain No Longer Active Azithromycin 200 mg Oral orally every day for 10 days No Longer Active Cenestin 0.45mg No Longer Active 658819 Citalopram 10 MG Oral Tablet 10 milligram Oral orally every day No Longer Active 8303473 Estrogens, Conjugated (SNF) 0.45 MG / medroxyprogesterone acetate 1.5 MG Oral Tablet 2 tablets Oral orally every day No Longer Active 402498 gabapentin 600 MG Oral Tablet 600 milligram Oral orally every 12 hours No Longer Active Hycodan Liquid 5 ml Oral orally three times daily cough, pneumonia No Longer Active Linisprolil 20mg No Longer Active 0767915 Oxycodone Hydrochloride 10 MG Oral Tablet 10 milligram Oral orally every 4 to 6 hours as needed. for severe pain not to exceeed 5 daily No Longer Active 006547 solifenacin succinate 10 MG Oral Tablet 10 milligram Oral orally every day No Longer Active Allergies Code Code System Allergy Substance Type Reaction Severity Start Date End Date Status 1191 RXNorm Aspirin Drug allergy Unknown 06/16/2009 Active 072545 RXNorm Flexeril Drug allergy Unknown 08/06/2012 Active 5640 RXNorm Ibuprofen Drug allergy Unknown 06/16/2009 Active 5933 RXNorm Iodine Drug allergy Unknown 08/06/2012 Active 587731 RXNorm Peanut Drug allergy Unknown 08/06/2012 Active RXNorm MISC-Other Allergy to substance Unknown 06/16/2009 Active Results Radiology Results Order: [id number] Elbow LT 3 views* Exam Completion Date:07/06/2015 [...] 102.99 lbs 07/06/2015 BSA (Body Surface Area) 1.01382 07/06/2015 BMI (Body Mass Index) 18.2 07/06/2015 Plan of Care * No data in the system Procedures * No data in the system Encounters Date Code Diagnosis Status (ICD10) - [id number] CONTUSION LEFT ELBOW INITIAL ENC Active Immunizations Vaccine Code Code System Vaccine Name Date Status 16 CVX influenza virus vaccine, whole virus 05/03/2012 Completed Functional Status * No data in the system Hospital Discharge Instructions * No data in the system
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
--- OUTSIDE RECORDS SUMMARY | 2016-10-22 18:53 | XMS REPORT | Continuity of Care Document ---
Author Author [facility] Organization [facility] Address [address] [place] [address] ;ext= Care Team Providers Care Health Technician Name Role Phone Ehsan MARQUEZ Admitting Physician Unavailable Ehsan MARQUEZ Attending Physician Unavailable Hospital Admission Diagnosis * No data in the System Social History Element Description Code Description Smoking Status Code System Start Date End Date Smoking Status [id number] Current every day smoker SNOMED-CT Problems Code Code System Problem Name Start Date End Date Status 546505829 SNOMED-CT Backache 03/31/2016 Active 091395299 SNOMED-CT Backache 03/14/2016 Active NECK, BACK, LEG PAIN 03/11/2016 Active HEADACHE, LEG PAIN 11/08/2015 Active VOMITING, HEADACHE 10/19/2015 Active BACK/NECK PAIN 08/30/2015 Active ELBOW AND ANKLE PAIN 07/06/2015 Active 603071818 SNOMED-CT C/O - a headache 08/10/2014 Active 19499789 SNOMED-CT Drug withdrawal seizure 04/2014 Active 733782509 SNOMED-CT Rib pain Unknown Active Medications RxNorm Medication Dose Route Instructions Indications Start Date End Date Status 842165 Acetaminophen 325 MG / Hydrocodone Bitartrate 10 [...] 0.625 milligram Oral orally every day Active 1480946 Fluticasone propionate 0.05 MG/ACTUAT Metered Dose Nasal [place] 1 spray Intranasal into the nostril(s) 2 times per day Active 217099 Lisinopril 40 MG Oral Tablet 40 milligram Oral orally every day Active 6918 Metoprolol 100 milligram Oral orally every day Active 672862 Zolpidem tartrate 10 MG Oral Tablet 10 milligram Oral orally every day at bedtime (takes 1/2 to 1 tab) Active 596511 Acetaminophen 325 MG / Hydrocodone Bitartrate 10 MG Oral Tablet 1 tablet Oral orally every 4 to 6 hours as needed. for severe pain No Longer Active 929480 Acetaminophen 650 MG Oral Tablet 650 milligram Oral orally every 6 hours as needed. pain No Longer Active Azithromycin 200 mg Oral orally every day for 10 days No Longer Active Cenestin 0.45mg No Longer Active 625609 Citalopram 10 MG Oral Tablet 10 milligram Oral orally every day No Longer Active 3747290 Estrogens, Conjugated ([facility]) 0.45 MG / medroxyprogesterone acetate 1.5 MG Oral Tablet 2 tablets Oral orally every day No Longer Active 04233 gabapentin 100 milligram Oral orally every day (Dose unknown, pt unable to provide and pharmacy closed. --KKL) No Longer Active 906341 gabapentin 600 MG Oral Tablet 600 milligram Oral orally every 12 hours No Longer Active Hycodan Liquid 5 ml Oral orally three times daily cough, pneumonia No Longer Active Linisprolil 20mg No Longer Active 6918 Metoprolol 50 milligram Oral orally every day No Longer Active 6016264 Oxycodone Hydrochloride 10 MG Oral Tablet 10 milligram Oral orally every 4 to 6 hours as needed. for severe pain not to exceeed 5 daily No Longer Active 305835 solifenacin succinate 10 MG Oral Tablet 10 milligram Oral orally every day No Longer Active Allergies Code Code System Allergy Substance Type Reaction Severity Start Date End Date Status 1191 RXNorm Aspirin Drug allergy Unknown 06/16/2009 Active 886558 RXNorm Benadryl Drug allergy Unknown 10/19/2015 Active 506456 RXNorm Flexeril Drug allergy Unknown 08/06/2012 Active 5640 RXNorm Ibuprofen Drug allergy Unknown 06/16/2009 Active 5933 RXNorm Iodine Drug allergy Unknown 08/06/2012 Active 628516 RXNorm Peanut Drug allergy Unknown 08/06/2012 Active [...] normal. No worrisome finding.Released By MICHELLE CORTES, MDDate: 10/09/2016 17:01 Order: [id number] CT Head or [...] acute intracranialhemorrhage.IMPRESSION: No acute intracranial abnormality.Released By MICHELLE CORTES, JASIELate: 10/09/2016 16:58 Order: [id number] CT Cerv Spine [...]
--- OUTSIDE RECORDS SUMMARY | 2016-10-22 18:53 | XMS REPORT | Continuity of Care Document ---
Author Author [facility] Organization [facility] Address [address] [place] [address] ;ext= Care Team Providers Care Weld Lay Out Worker Name Role Phone BOLIVAR RANGEL Admitting Physician Unavailable BOLIVAR RANGEL Attending Physician Unavailable Hospital Admission Diagnosis * No data in the System Social History Element Description Code Description Smoking Status Code System Start Date End Date Smoking Status [id number] Light tobacco smoker SNOMED-CT Problems Code Code System Problem Name Start Date End Date Status BACK/NECK PAIN 08/30/2015 Active ELBOW AND ANKLE PAIN 07/06/2015 Active 797170092 SNOMED-CT C/O - a headache 08/10/2014 Active 75099409 SNOMED-CT Drug withdrawal seizure 04/2014 Active 109335113 SNOMED-CT Rib pain Unknown Active Medications RxNorm Medication Dose Route Instructions Indications Start Date End Date Status 435 Albuterol 1 puff Inhalation inhaled every 6 hours as needed. ( administer with spacer) shortness of breath or wheezing Active 596 Alprazolam 0.5 milligram Oral orally at hs as needed. for insomnia Active 4099 Estrogens, Conjugated (LONG TERM) 0.625 milligram Oral orally every day Active 425585 Lisinopril 40 MG Oral Tablet 40 milligram Oral orally every day Active 18 Metoprolol 50 milligram Oral orally every day Active 347083 Zolpidem tartrate 10 MG Oral Tablet 10 milligram Oral orally every day at bedtime (takes 1/2 to 1 tab) Active 099911 Acetaminophen 325 MG / Hydrocodone Bitartrate 10 [...] Longer Active Cenestin 0.45mg No Longer Active 250464 Citalopram 10 MG Oral Tablet 10 milligram Oral orally every day No Longer Active 9419207 Estrogens, Conjugated (LONG TERM) 0.45 MG / medroxyprogesterone acetate 1.5 MG Oral Tablet 2 tablets Oral orally every day No Longer Active 549772 gabapentin 600 MG Oral Tablet 600 milligram Oral orally every 12 hours No Longer Active Hycodan Liquid 5 ml Oral orally three times daily cough, pneumonia No Longer Active Linisprolil 20mg No Longer Active 7177177 Oxycodone Hydrochloride 10 MG Oral Tablet 10 milligram Oral orally every 4 to 6 hours as needed. for severe pain not to exceeed 5 daily No Longer Active 841303 solifenacin succinate 10 MG Oral Tablet 10 milligram Oral orally every day No Longer Active Allergies Code Code System Allergy Substance Type Reaction Severity Start Date End Date Status 1191 RXNorm Aspirin Drug allergy Unknown 06/16/2009 Active 355299 RXNorm Flexeril Drug allergy Unknown 08/06/2012 Active 5640 RXNorm Ibuprofen Drug allergy Unknown 06/16/2009 Active 5933 RXNorm Iodine Drug allergy Unknown 08/06/2012 Active 166620 RXNorm Peanut Drug allergy Unknown 08/06/2012 Active RXNorm MISC-Other Allergy to substance Unknown 06/16/2009 Active Results Radiology Results Order: [id number] Knee RT 3 views* Exam Completion Date:09/11/2015 14:43 INDICATION: FallKnee RT 3 views: There are minimal hypertrophic changes in the right knee.Probable tiny right knee joint effusion. The right knee is otherwise negative.There are no erosions. There are no focal osseous lesions. No evidence of afracture. No significant change since 07/22/2015.Released By JASIEL CHASEate: 09/11/2015 15:26 Order: [id number] Elbow Bilat 3 [...] 103.17 lbs 09/11/2015 BSA (Body Surface Area) 1.83223 09/11/2015 BMI (Body Mass Index) 17.8 09/11/2015 [...]
--- OUTSIDE RECORDS SUMMARY | 2016-10-22 18:53 | XMS REPORT | Continuity of Care Document ---
Author Author [facility] Organization [facility] Address [address] [place] [address] ;ext= Care Team Providers Care Drawer Maker Name Role Phone BOLIVAR RANGEL Admitting Physician Unavailable BOLIVAR RANGEL Attending Physician Unavailable Hospital Admission Diagnosis * No data in the System Social History Element Description Code Description Smoking Status Code System Start Date End Date Smoking Status [id number] Light tobacco smoker SNOMED-CT Problems Code Code System Problem Name Start Date End Date Status ELBOW AND ANKLE PAIN 07/06/2015 Active 571563927 SNOMED-CT C/O - a headache 08/10/2014 Active 34752783 SNOMED-CT Drug withdrawal seizure 04/2014 Active 565372976 SNOMED-CT Rib pain Unknown Active Medications RxNorm Medication Dose Route Instructions Indications Start Date End Date Status 435 Albuterol 1 puff Inhalation inhaled every 6 hours as needed. ( administer with spacer) shortness of breath or wheezing Active 596 Alprazolam 0.5 milligram Oral orally at hs as needed. for insomnia Active 4099 Estrogens, Conjugated ([facility]) 0.625 milligram Oral orally every day Active 039351 Lisinopril 40 MG Oral Tablet 40 milligram Oral orally every day Active 6918 Metoprolol 50 milligram Oral orally every day Active 125749 Zolpidem tartrate 10 MG Oral Tablet 10 milligram Oral orally every day at bedtime (takes 1/2 to 1 tab) Active 649679 Acetaminophen 325 MG / Hydrocodone Bitartrate 10 [...] Longer Active Cenestin 0.45mg No Longer Active 714867 Citalopram 10 MG Oral Tablet 10 milligram Oral orally every day No Longer Active 3454547 Estrogens, Conjugated ([facility]) 0.45 MG / medroxyprogesterone acetate 1.5 MG Oral Tablet 2 tablets Oral orally every day No Longer Active 692909 gabapentin 600 MG Oral Tablet 600 milligram Oral orally every 12 hours No Longer Active Hycodan Liquid 5 ml Oral orally three times daily cough, pneumonia No Longer Active Linisprolil 20mg No Longer Active 3238838 Oxycodone Hydrochloride 10 MG Oral Tablet 10 milligram Oral orally every 4 to 6 hours as needed. for severe pain not to exceeed 5 daily No Longer Active 290194 solifenacin succinate 10 MG Oral Tablet 10 milligram Oral orally every day No Longer Active Allergies Code Code System Allergy Substance Type Reaction Severity Start Date End Date Status 1191 RXNorm Aspirin Drug allergy Unknown 06/16/2009 Active 756307 RXNorm Flexeril Drug allergy Unknown 08/06/2012 Active 5640 RXNorm Ibuprofen Drug allergy Unknown 06/16/2009 Active 5933 RXNorm Iodine Drug allergy Unknown 08/06/2012 Active 019269 RXNorm Peanut Drug allergy Unknown 08/06/2012 Active RXNorm MISC-Other Allergy to substance Unknown 06/16/2009 Active Results Radiology Results Order: [id number] Knee RT 3 views* Exam Completion Date:07/22/2015 13:09 Indication: Knee painRIGHT KNEE 3-VIEWS SUPINE (AP, INTERNAL OBL & LAT): COMPARISON: NoneFINDINGS: There is no evidence of fracture, dislocation, or joint narrowing.IMPRESSION: Negative x-raysReleased By JASIEL TAYLORate : 07/22/2015 14:55 Order: [id number] Ankle RT 3 views* Exam Completion Date:07/22/2015 [...]
--- OUTSIDE RECORDS SUMMARY | 2016-10-22 18:53 | XMS REPORT | Continuity of Care Document ---
Author Author [facility] Organization [facility] Address [address] [place] [address] ;ext= Care Team Providers Care Nuclear Waste Management Engineer Name Role Phone Ehsan CARLOS II Admitting Physician [phone] Ehsan CARLOS II Attending Physician [phone] Hospital Admission Diagnosis Code Admission Diagnosis Date [id number] Intestinal obstruction Social History Element Description Code Description Smoking Status Code System Start Date End Date Smoking Status [id number] Unknown if ever smoked SNOMED-CT Problems Code Code System Problem Name Start Date End Date Status ELBOW AND ANKLE PAIN 07/06/2015 Active 562445405 SNOMED-CT C/O - a headache 08/10/2014 Active 13865101 SNOMED-CT Drug withdrawal seizure 04/2014 Active 259584388 SNOMED-CT Rib pain Unknown Active Medications RxNorm Medication Dose Route Instructions Indications Start Date End Date Status 435 Albuterol 1 puff Inhalation inhaled every 6 hours as needed. ( administer with spacer) shortness of breath or wheezing Active 596 Alprazolam 0.5 milligram Oral orally at hs as needed. for insomnia Active 4099 Estrogens, Conjugated (PRISON) 0.625 milligram Oral orally every day Active 19780219 Lisinopril 40 MG Oral Tablet 40 milligram Oral orally every day Active 18 Metoprolol 50 milligram Oral orally every day Active 578051 Zolpidem tartrate 10 MG Oral Tablet 10 milligram Oral orally every day at bedtime (takes 1/2 to 1 tab) Active 613636 Acetaminophen 325 MG / Hydrocodone Bitartrate 10 [...] Longer Active Cenestin 0.45mg No Longer Active 268685 Citalopram 10 MG Oral Tablet 10 milligram Oral orally every day No Longer Active 5366738 Estrogens, Conjugated (PRISON) 0.45 MG / medroxyprogesterone acetate 1.5 MG Oral Tablet 2 tablets Oral orally every day No Longer Active 986615 gabapentin 600 MG Oral Tablet 600 milligram Oral orally every 12 hours No Longer Active Hycodan Liquid 5 ml Oral orally three times daily cough, pneumonia No Longer Active Linisprolil 20mg No Longer Active 0921035 Oxycodone Hydrochloride 10 MG Oral Tablet 10 milligram Oral orally every 4 to 6 hours as needed. for severe pain not to exceeed 5 daily No Longer Active 788557 solifenacin succinate 10 MG Oral Tablet 10 milligram Oral orally every day No Longer Active Allergies Code Code System Allergy Substance Type Reaction Severity Start Date End Date Status 1191 RXNorm Aspirin Drug allergy Unknown 06/16/2009 Active 337612 RXNorm Flexeril Drug allergy Unknown 08/06/2012 Active 5640 RXNorm Ibuprofen Drug allergy Unknown 06/16/2009 Active 5933 RXNorm Iodine Drug allergy Unknown 08/06/2012 Active 721366 RXNorm Peanut Drug allergy Unknown 08/06/2012 Active RXNorm MISC-Other Allergy to substance Unknown 06/16/2009 Active Results Laboratory Results Order: Basic Metabolic Panel Legend: D=Delta, H=High, L=Low, HH=Critical High, LL=Critical Low, AA=Critical Alpha-Numeric, C=Corrected, A=Abnormal LOINC Test Result Flag Range Units Date 57 1Glucose SerPl-mCnc 93 70-105 mg/dl 06/01/2015 04:30 3094-0 1BUN SerPl-mCnc 8 7-25 mg/dl 06/01/2015 04:30 2160-0 1Creat SerPl-mCnc 0.5 L 0.6-1.3 mg/dl 06/01/2015 04:30 53105-7 1Creat/Urea nit SerPl 16 13-39 06/01/2015 04:30 2951-2 1Sodium SerPl-sCnc 142 135-145 mmol/L 06/01/2015 04:30 86403-7 1Potassium SerPl-mCnc 3.3 L 3.5-5.1 mmol/L 06/01/2015 04:30 2075-0 1Chloride SerPl-sCnc 107 98-107 mmol/l 06/01/2015 04:30 8-9 1CO2 SerPl-sCnc 32 H 21-31 mmol/l 06/01/2015 04:30 32939-7 1Anion Gap SerPl-sCnc 6 L 9-16 mmol/L 06/01/2015 04:30 2692-2 1Osmolality SerPl 292 277-298 mOsm/kg 06/01/2015 04:30 92290-3 1Calcium SerPl-mCnc 8.2 8.2-10.0 mg/dl 06/01/2015 04:30 1GFR 137 H 60-116 GFRunits 06/01/2015 04:30 * Performing [facility] Footnotes:* [id number] [address] - [place] Order: CBC With Automated Differential Legend: D=Delta, H=High, L=Low, HH=Critical High, LL=Critical Low, AA=Critical Alpha-Numeric, C=Corrected, A=Abnormal LOINC Test Result Flag Range Units Date 90 1WBC # Bld Auto 4.4 L 4.5-11.0 10^3/mm3 06/01/2015 04:30 37192-7 1Retics # Auto 4.09 4.00-5.20 10^6/mm3 06/01/2015 04:30 45546-4 1Hgb BldV-mCnc 13.8 12.0-16.0 g/dl 06/01/2015 04:30 4544-3 1Hct VFr Bld Auto 39.8 36.0-46.0 % 06/01/2015 04:30 787-2 1MCV RBC Auto 97.3 82.0-100.0 10^6/mm3 06/01/2015 04:30 785-6 1MCH RBC Qn Auto 33.7 27.0-34.0 pg 06/01/2015 04:30 786-4 1MCHC RBC Auto-mCnc 34.7 32.0-36.0 g/dl 06/01/2015 04:30 788-0 1RDW RBC Auto-Rto 12.8 11.7-15.0 % 06/01/2015 04:30 777-3 1Platelet # Bld Auto 153 150-450 10^3/mm3 06/01/2015 04:30 27444-3 1PMV Bld 9.9 7.4-10.4 06/01/2015 04:30 33774-8 1Neutrophils # CSF 57.4 40.0-74.0 % 06/01/2015 04:30 1LYMPH% 30.5 14.0-46.0 % 06/01/2015 04:30 25527-2 1CD43 Ag Tiss Ql ImStn 10.9 4.0-13.0 % 06/01/2015 04:30 711-2 1Eosinophil # Bld Auto 0.7 0.0-4.0 % 06/01/2015 04:30 704-7 1Basophils # Bld Auto 0.5 <=3.0 % 06/01/2015 04:30 751-8 1Neutrophils # Bld Auto 2.5 1.8-7.8 06/01/2015 04:30 92812-1 1Lymphocytes # Bld 1.3 0.7-4.5 06/01/2015 04:30 67819-7 1CD43 Ag Tiss Ql ImStn 0.5 0.1-1.0 06/01/2015 04:30 711-2 1Eosinophil # Bld Auto 0.03 <=4.00 06/01/2015 04:30 704-7 1Basophils # Bld Auto 0.02 <=0.20 06/01/2015 04:30 2MANDIFF N 06/01/2015 04:30 50249-4 2RBC Bld Auto N 06/01/2015 04:30 * Performing Lab Footnotes:* [facility] [id number] - [address] [place] [address] - [place] * [facility] [id number] - [address] [place] [address] [facility] - [place] [employer] Roofer:, Yudi Crum MD - [place] Order: Comprehensive Metabolic Panel Legend: D=Delta, H=High, L=Low, HH=Critical High, LL=Critical Low, AA=Critical Alpha-Numeric, C=Corrected, A=Abnormal LOINC Test Result Flag Range Units Date 2345-01 1Glucose SerPl-mCnc 108 H 70-105 mg/dl 05/31/2015 04:15 3094-0 1BUN SerPl-mCnc 12 7-25 mg/dl 05/31/2015 04:15 2160-0 1Creat SerPl-mCnc 1.0 0.6-1.3 mg/dl 05/31/2015 04:15 34281-7 1Creat/Urea nit SerPl 12 L 13-39 05/31/2015 04:15 2951-2 1Sodium SerPl-sCnc 137 135-145 mmol/L 05/31/2015 04:15 87421-7 1Potassium SerPl-mCnc 3.3 L 3.5-5.1 mmol/L 05/31/2015 04:15 2075-0 1Chloride SerPl-sCnc 102 98-107 mmol/l 05/31/2015 04:15 8-9 1CO2 SerPl-sCnc 30 21-31 mmol/l 05/31/2015 04:15 13733-1 1Anion Gap SerPl-sCnc 8 L 9-16 mmol/L 05/31/2015 04:15 2692-2 1Osmolality SerPl 284 277-298 mOsm/kg 05/31/2015 04:15 52268-1 1Calcium SerPl-mCnc 8.0 L 8.2-10.0 mg/dl 05/31/2015 04:15 1742-6 1ALT SerPl-cCnc 25 7-52 IU/L 05/31/2015 04:15 1920-8 1AST SerPl-cCnc 23 13-39 IU/L 05/31/2015 04:15 1715-2 1ACP SerPl-cCnc 44 34-104 U/L 05/31/2015 04:15 1975-2 1Bilirub SerPl-mCnc 0.4 0.3-1.0 mg/dl 05/31/2015 04:15 2885-2 1Prot SerPl-mCnc 5.3 L 6.0-8.3 g/dL 05/31/2015 04:15 1751-7 1Albumin SerPl-mCnc 3.0 L 3.5-5.7 g/dl 05/31/2015 04:15 2336-6 1Globulin Ser-mCnc 2.3 2.3-3.2 g/dL 05/31/2015 04:15 1759-0 1Albumin/Glob SerPl 1.3 1.2-2.0 05/31/2015 04:15 1GFR 61 60-116 GFRunits 05/31/2015 04:15 * Performing Lab Footnotes:* [facility] - [id number] - [address] [place] [address] - [place] Order: Urinalysis With Microscopic Exam Legend: D=Delta, H=High, L=Low, HH=Critical High, LL=Critical Low, AA=Critical Alpha-Numeric, C=Corrected, A=Abnormal LOINC Test Result Flag Range Units Date 5778-6 Color Ur Yellow 05/31/2015 04:15 08049-3 Clarity Ur Clear 05/31/2015 04:15 2966-0 Sp Gr 24h Ur 1.025 1.005-1.030 05/31/2015 04:15 2756-5 pH Ur 5.5 5.0-7.0 05/31/2015 04:15 83482-7 Leukocyte esterase Ur-aCnc Negative NEGATIVE 05/31/2015 04:15 49118-8 Nitrite Ur Ql Strip.auto Negative NEGATIVE 05/31/2015 04:15 94533-9 Prot Tiss-mCnt Negative NEGATIVE 05/31/2015 04:15 2349-9 Glucose Ur Ql Negative NEGATIVE 05/31/2015 04:15 02655-4 MEK Ur-mCnc Negative NEGATIVE 05/31/2015 04:15 1977-8 Bilirub Ur Ql Negative NEGATIVE 05/31/2015 04:15 933-2 Bld Prod Typ BPU Moderate * NEGATIVE 05/31/2015 04:15 20937-7 Urobilinogen Ur Ql 0.2 <=1.0 05/31/2015 04:15 1WBC_UM 0-2 * 0-5 /HPF 05/31/2015 04:15 5808-1 1RBC # UrnS HPF 5-10 * 0-5 /HPF 05/31/2015 04:15 5787-7 1Epi Cells #/area UrnS HPF 0-2 0-2 /HPF 05/31/2015 04:15 71785-3 1Bacteria UrnS Ql Micro Moderate /HPF 05/31/2015 04:15 79308-4 1Mucous Threads #/area UrnS HPF Small Amount * NONE PRESENT /HPF 05/31/2015 04:15 9842-6 1Casts #/area UrnS LPF 5-10 hyaline /lpf 05/31/2015 04:15 93161-0 1C trach UrnS Ql Cult Y 05/31/2015 04:15 * Performing Lab Footnotes:* [facility] - [id number] - [address] - [place] Order: Lipase Legend: D=Delta, H=High, L=Low, HH=Critical High, LL=Critical Low, AA=Critical Alpha-Numeric, C=Corrected, A=Abnormal LOINC Test Result Flag Range Units Date 3040-3 1Lipase SerPl-cCnc 27 11-82 U/L 05/30/2015 17:05 * Performing Lab Footnotes:* [facility] - [id number] - [address] - [place] Order: Urinalysis Legend: D=Delta, H=High, L=Low, HH=Critical High, LL=Critical Low, AA=Critical Alpha-Numeric, C=Corrected, A=Abnormal LOINC Test Result Flag Range Units Date 5778-6 1Color Ur Dark Straw 05/30/2015 16:50 59308-9 1Clarity Ur Clear 05/30/2015 16:50 2966-0 1Sp Gr 24h Ur 1.010 1.005-1.030 05/30/2015 16:50 2756-5 1pH Ur 6.0 5.0-7.0 05/30/2015 16:50 22548-3 1Leukocyte esterase Ur-aCnc Negative NEGATIVE 05/30/2015 16: 50 19403-8 1Nitrite Ur Ql Strip.auto Negative NEGATIVE 05/30/2015 16:50 90141-7 1Prot Tiss-mCnt Negative NEGATIVE 05/30/2015 16:50 2349-9 1Glucose Ur Ql Negative NEGATIVE 05/30/2015 16:50 02262-0 1MEK Ur-mCnc Negative NEGATIVE 05/30/2015 16:50 1977-8 1Bilirub Ur Ql Negative NEGATIVE 05/30/2015 16:50 92254-8 1Urobilinogen Ur Ql 0.2 <=1.0 05/30/2015 16:50 933-2 1Bld Prod Typ BPU Trace-intact * NEGATIVE 05/30/2015 16:50 31895-1 1Micro UrnS N 05/30/2015 16:50 * Performing Lab Footnotes:* [facility] [id number] - [address] [place] Microbiology Results w Susceptibilities Order: Culture Urine * Culture Observations:* 1Final: Three or more colony types observed, contamination possible suggest * 1recollection; ID workup upon request within 24 hours * Performing Lab Footnotes:* [facility] - [id number] - [address] [place] Radiology Results Order: UGISMB UGI w small bowel series* Exam Completion Date:05/31/2015 03:47 INDICATION: bowel obstructionUGI w small bowel series: Normal appearance of the esophagus, stomach, andsmall bowel. No obstruction. No delay of transit. Contrast reaches the colonwell less than one hour after initial ingestion.No mass. No filling defect or constricting lesion. No abnormal finding.Released By MICHELLE CORTES, MDDate: 05/31/2015 16:33 Order: CTAP2 CT Abd Pelvis WWO/Contrast* Exam Completion Date:05/30/2015 16:52 INDICATION: VTE Diagnostic Testabdominal painCT Abd Pelvis WWO/Contrast:Axial acquisitions were obtained with and without the use of IV contrast.Findings: There is marked fluid distention of the visualized distal esophagusstomach and small bowel. There is fluid within the nondilated terminal ileum.There is a large volume of stool throughout the entire colon. The findings maybe obstruction from constipation or ileus. A transition point is notidentified to suggest an extrinsic adhesion. No significant free fluid isseen. Still the findings are consistent with intestinal obstruction.The liver spleen gallbladder and adrenal glands are unremarkable. There is nohydronephrosis or mass or calculus in either kidney.Released By GLENNA MCINTYRE, MDDate: 2014 08:26 Vital Signs Vitals Value Date Body Temperature 98 F 06/01/2015 Respiratory Rate 20 06/01/2015 O2% BldC Oximetry 97 06/01/2015 BP Systolic 144 mmHg 06/01/2015 BP Diastolic 99 mmHg 06/01/2015 Height 63 in 05/30/2015 Weight Measured 103.61 lbs 05/30/2015 BSA (Body Surface Area) 1.20954 05/30/2015 BMI (Body Mass Index) 18.3 05/30/2015 Plan of Care * No data in the system Procedures * No data in the system Encounters Date Code Diagnosis Status (ICD10) - K560 PARALYTIC ILEUS Active Immunizations Vaccine Code Code System Vaccine Name Date Status 16 CVX influenza virus vaccine, whole virus 05/03/2012 Completed Functional Status * No data in the system Hospital Discharge Instructions * Medical* Diet* Regular diet as tolerated. Drink lots of fluids. * Activity* Resume usual activities unless otherwise indicated * Notify Your Physician with Any Questions or Problems* Call your Physician or report to the Emergency Room if your condition(s) worsen after discharge * If you have any further questions, contact your physician or clinic * Activity* Alternate activity periods with rest periods; breakup large activites into smaller tasks * Home Meds Sent* N/A * Diet* Other
--- OUTSIDE RECORDS SUMMARY | 2016-10-22 18:53 | XMS REPORT | Summary of Care ---
Author Author Gilbert Crawford M.D. Organization Unknown Address Unknown Phone Unavailable Care Team Providers Care Database Admin Name Role Phone Ty Aleman, Rogerio Unavailable [...] leg pain, right (729.5, M79.604) Status: Active Insect bite (919.4, W57.XXXA) Status: Active Dysuria (788.1, R30.0) Status: Active Chronic pain syndrome (338.4, G89.4) Status: Active Insomnia (780.52, G47.00) Status: Active Hypertension (401.9, I10) Status: Active Postmenopausal HRT (hormone replacement therapy) (V07.4, Z79.890) Status: Active Medications Name Dates Details Hydrocodone-Acetaminophen 10-325 MG Oral Tablet TAKE 1 TABLET BY MOUTH EVERY 6 HOURS NEEDED FOR PAIN.*MAX 4 PER DAY*MAY FILL ON OR AFTER 02/27/14* Quantity: 120 Rocio Baron M.D. * Start 24-Oct-2012 Active Prempro 0.3-1.5 MG Oral Tablet TAKE ONE TABLET BY MOUTH EVERY OTHER DAY * Quantity: 28 Refills: 2 Gilbert Crawford M.D. * Start 24-Oct-2012 Active Lisinopril 40 MG Oral Tablet TAKE ONE TABLET BY MOUTH ONCE DAILY DIRECTED * Quantity: 30 Refills: 4 Thode M.D.Gilbert * Start 24-Oct-2012 Active Zolpidem Tartrate 10 MG Oral Tablet TAKE ONE TABLET BY MOUTH AT BEDTIME NEEDED FOR SLEEP. MUST LAST 30 DAYS. * Quantity: 30 Refills: 0 Thode M.D.Gilbert * Start 18-Jul-2013 Active ALPRAZolam 1 MG Oral Tablet * Refills: 0 * Start 10-Sep-2016 Active Metoprolol Succinate ER 50 MG Oral Tablet Extended Release 24 Hour TAKE ONE TABLET BY MOUTH ONCE A DAY * Quantity: 30 Refills: 2 Thode M.D. Gilbert Beatty * Start 10-Sep-2016 Active [facility] Fluticasone Propionate 50 MCG/ACT Nasal Suspension 2 sprays in each nostril BID * Quantity: 1 Refills: 0 Thode M.D., Gilbert Beatty * Start 10-Sep-2016 Active 15.8 ML Bottle Triamcinolone Acetonide 0.1 % External Lotion APPLY 2-3 TIMES DAILY TO AFFECTED AREA(S). * Quantity: 1 Refills: 0 Thode M.D. Gilbert Beatty * Start 21-Sep-2016 Active 60 ML Bottle Allergies [...] Encounters Appointment; Provider: Dawood Ospina M.D. On 28-Sep-2016 13:15 Interventions Provided Medication Changes* [facility] Fluticasone Propionate 50 MCG/ACT Nasal Suspension - Renew * Lisinopril 40 MG Oral Tablet - Renew * Metoprolol Succinate ER 50 MG Oral Tablet Extended Release 24 Hour - Renew with Changes * Prempro 0.3-1.5 MG Oral Tablet - Renew * Triamcinolone Acetonide 0.1 % External Lotion - Start * Zolpidem Tartrate 10 MG Oral Tablet - Renew Labs/Procedures/Imaging* Urinalysis, Reflex to Microscopic or Culture PRN 8005; Done: Sep 21 2016 11:25AM Instructions Name Dates Details Instructions not documented Encounters Appointment; Dawood Ospina M.D. Encounter Diagnosis: Problem not documented On 21-Sep-2016 09:30 Appointment; Gilbert Crawford M.D. Encounter Diagnosis: Problem not documented On 10-Sep-2016 14:15
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
--- OUTSIDE RECORDS SUMMARY | 2016-10-22 18:54 | XMS REPORT | Continuity of Care Document ---
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 Name Role Phone ELISSA ROQUE Admitting Physician Unavailable ELISSA ROQUE Attending Physician Unavailable Hospital Admission Diagnosis * No data in the System Social History Element Description Code Description Smoking Status Code System Start Date End Date Smoking Status [id number] Heavy tobacco smoker SNOMED-CT Problems Code Code System Problem Name Start Date End Date Status NECK, BACK, LEG PAIN 03/11/2016 Active HEADACHE, LEG PAIN 11/08/2015 Active VOMITING, HEADACHE 10/19/2015 Active BACK/NECK PAIN 08/30/2015 Active ELBOW AND ANKLE PAIN 07/06/2015 Active 148484783 SNOMED-CT C/O - a headache 08/10/2014 Active 19607647 SNOMED-CT Drug withdrawal seizure 04/2014 Active 244261628 SNOMED-CT Rib pain Unknown Active Medications RxNorm Medication Dose Route Instructions Indications Start Date End Date Status 435 Albuterol 1 puff Inhalation inhaled every 6 hours as needed. ( administer with spacer) shortness of breath or wheezing Active 596 Alprazolam 0.5 milligram Oral orally at hs as needed. for insomnia Active 9 Estrogens, Conjugated (SNF) 0.625 milligram Oral orally every day Active 19780219 Lisinopril 40 MG Oral Tablet 40 milligram Oral orally every day Active 440695 Zolpidem tartrate 10 MG Oral Tablet 10 milligram Oral orally every day at bedtime (takes 1/2 to 1 tab) Active 412822 Acetaminophen 325 MG / Hydrocodone Bitartrate 10 [...] Longer Active Cenestin 0.45mg No Longer Active 434277 Citalopram 10 MG Oral Tablet 10 milligram Oral orally every day No Longer Active 4759555 Estrogens, Conjugated (SNF) 0.45 MG / medroxyprogesterone acetate 1.5 MG Oral Tablet 2 tablets Oral orally every day No Longer Active 853009 gabapentin 600 MG Oral Tablet 600 milligram Oral orally every 12 hours No Longer Active Hycodan Liquid 5 ml Oral orally three times daily cough, pneumonia No Longer Active Linisprolil 20mg No Longer Active 6918 Metoprolol 50 milligram Oral orally every day No Longer Active 8251560 Oxycodone Hydrochloride 10 MG Oral Tablet 10 milligram Oral orally every 4 to 6 hours as needed. for severe pain not to exceeed 5 daily No Longer Active 847614 solifenacin succinate 10 MG Oral Tablet 10 milligram Oral orally every day No Longer Active Allergies Code Code System Allergy Substance Type Reaction Severity Start Date End Date Status 1191 RXNorm Aspirin Drug allergy Unknown 06/16/2009 Active 745736 RXNorm Benadryl Drug allergy Unknown 10/19/2015 Active 919706 RXNorm Flexeril Drug allergy Unknown 08/06/2012 Active 5640 RXNorm Ibuprofen Drug allergy Unknown 06/16/2009 Active 5933 RXNorm Iodine Drug allergy Unknown 08/06/2012 Active 223647 RXNorm Peanut Drug allergy Unknown 08/06/2012 Active RXNorm MISC-Other Allergy to substance Unknown 06/16/2009 Active Results Laboratory Results Order: Urinalysis Legend: D=Delta, H=High, L=Low, HH=Critical High, LL=Critical Low, AA=Critical Alpha-Numeric, C=Corrected, A=Abnormal LOINC Test Result Flag Range Units Date 5778-6 1Color Ur Light yellow 03/11/2016 21:03 21447-0 1Clarity Ur Clear 03/11/2016 21:03 2966-0 1Sp Gr 24h Ur 1.010 1.005-1.030 03/11/2016 21:03 2756-5 1pH Ur 6.5 5.0-7.0 03/11/2016 21:03 70798-8 1Leukocyte esterase Ur-aCnc Negative NEGATIVE 03/11/2016 21: 03 23619-6 1Nitrite Ur Ql Strip.auto Negative NEGATIVE 03/11/2016 21:03 03584-0 1Prot Tiss-mCnt Negative NEGATIVE 03/11/2016 21:03 2349-9 1Glucose Ur Ql Negative NEGATIVE 03/11/2016 21:03 27660-5 1MEK Ur-mCnc Negative NEGATIVE 03/11/2016 21:03 1977-8 1Bilirub Ur Ql Negative NEGATIVE 03/11/2016 21:03 84327-5 1Urobilinogen Ur Ql 0.2 <=1.0 03/11/2016 21:03 933-2 1Bld Prod Typ BPU Trace-lysed * NEGATIVE 03/11/2016 21:03 73796-9 1Micro UrnS N 03/11/2016 21:03 * Performing Lab Footnotes:* [facility] - [id number] - [address] [place] [address] - YUDI CONTEHENS Order: CBC With Automated Differential Legend: D=Delta, H=High, L=Low, HH=Critical High, LL=Critical Low, AA=Critical Alpha-Numeric, C=Corrected, A=Abnormal LOINC Test Result Flag Range Units Date 6690-2 1WBC # Bld Auto 5.8 4.5-11.0 10^3/mm3 03/11/2016 21:00 52836-8 1Retics # Auto 5.00 4.00-5.20 10^6/mm3 03/11/2016 21:00 31093-6 1Hgb BldV-mCnc 16.5 H 12.0-16.0 g/dl 03/11/2016 [...] Bld Auto 223 150-450 10^3/mm3 03/11/2016 21:00 02194-4 1PMV Bld 9.6 7.4-10.4 03/11/2016 21:00 13604-7 1Neutrophils # CSF 44.8 40.0-74.0 % 03/11/2016 21:00 1LYMPH% 46.0 14.0-46.0 % 03/11/2016 21:00 76579-7 1CD43 Ag Tiss Ql ImStn 7.8 4.0-13.0 % 03/11/2016 21:00 711-2 1Eosinophil # Bld Auto 0.9 0.0-4.0 % 03/11/2016 21:00 704-7 1Basophils # Bld Auto 0.5 <=3.0 % 03/11/2016 21:00 751-8 1Neutrophils # Bld Auto 2.6 1.8-7.8 03/11/2016 21:00 61533-0 1Lymphocytes # Bld 2.7 0.7-4.5 03/11/2016 21:00 43122-6 1CD43 Ag Tiss Ql ImStn 0.5 0.1-1.0 03/11/2016 21:00 711-2 1Eosinophil # Bld Auto 0.05 <=4.00 03/11/2016 21:00 704-7 1Basophils # Bld Auto 0.03 <=0.20 03/11/2016 21:00 2MANDIFF N 03/11/2016 21:00 93282-2 2RBC Bld Auto N 03/11/2016 21:00 * Performing Lab Footnotes:* 1[facility] - [id number] - [address] [place] [address] - YUDI CRUM * [facility] - [id number] - [address] [facility] [place] [place] [address] [facility] - Supervisor Rod Placing:, Yudi Crum MD - YUDI CRUM Vital Signs Vitals Value Date Body Temperature 97.6 F 03/11/2016 Respiratory Rate 18 03/11/2016 O2% BldC Oximetry 97 03/11/2016 BP Systolic 166 mmHg 03/11/2016 BP Diastolic 106 mmHg 03/11/2016 Height 62 in 03/11/2016 Weight Measured 91.6 lbs 03/11/2016 BSA (Body Surface Area) 1.57782 03/11/2016 BMI (Body Mass Index) 16.8 03/11/2016 [...]
--- OUTSIDE RECORDS SUMMARY | 2016-10-22 18:54 | XMS REPORT | Summary of Care ---
Author Author Henny Muñoz APRN Organization Unknown Address [address], [place] [id number] Phone Unavailable Care Team Providers Care Ditch Rider Name Role Phone Rogerio Crawford M.D. Unavailable [...] DAY * Quantity: 28 Refills: 2 Thode M.[facility]bert Mcleod Start 24-Oct-2012 Active Lisinopril 40 MG Oral Tablet TAKE ONE TABLET BY MOUTH ONCE DAILY DIRECTED * Quantity: 30 Refills: 4 Thode M.Gilbert Mcleod Start 24-Oct-2012 Active Zolpidem Tartrate 10 MG Oral Tablet TAKE ONE TABLET BY MOUTH AT BEDTIME NEEDED FOR SLEEP. MUST LAST 30 DAYS. * Quantity: 30 Refills: 0 Thchris Weston.[facility]bert Mcleod Start 18-Jul-2013 Active ALPRAZolam 1 MG Oral Tablet * Refills: 0 * Start 10-Sep-2016 Active Metoprolol Succinate ER 50 MG Oral Tablet Extended Release 24 Hour TAKE ONE TABLET BY MOUTH ONCE A DAY * Quantity: 30 Refills: 2 ThGilbert perez M.D. Start 10-Sep-2016 Active [facility] Fluticasone Propionate 50 MCG/ACT Nasal Suspension 2 sprays in each nostril BID * Quantity: 1 Refills: 0 Thchris Weston.[facility] Start 10-Sep-2016 Active 15.8 ML Bottle Triamcinolone [...] Observations Planned Goals not documented Interventions Provided Labs/Procedures/Imaging* XRay FOOT-Left; Done: 13Oct2016 02:07PM Instructions Name Dates Details Instructions not documented Encounters Appointment; Osmany Coreas M.D. Encounter Diagnosis: Problem not documented On 13-Oct-2016 13:00 Appointment; Moustapha Graves D.O. Encounter Diagnosis: Problem [...]
[2016-10-22 19:00] VITALS: Ht 162.6 cm; Wt 51.7 kg
--- NOTE | 2016-10-22 19:20 | NUR ---
PROVIDER DR GRIDER IN TO SEE PATIENT.
[2016-10-22] MEDS ORDERED: METO50TA5 PO (19:43)
[2016-10-22] MEDS ORDERED: ZOLP10TA2 PO (19:43)
[2016-10-22] MEDS ORDERED: ESTR0.624 PO (19:43)
[2016-10-22] MEDS ORDERED: ZOLP5TAB2 PO (19:43)
[2016-10-22] MEDS ORDERED: LISI-625 PO (19:43)
--- OUTSIDE RECORDS SUMMARY | 2016-10-22 19:44 | XMS REPORT | Continuity of Care Document ---
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 Name Role Phone [employer] Unavailable Unavailable Problems Medications Allergies, Adverse Reactions, Alerts Substance Category Reaction Severity Reaction type Status Date Reported Comments Source aspirin Datatype(AL1.2)-Drug Allergy Active 12/07/2006 [facility] Iodine Datatype(AL1.2)-Drug Allergy Active 12/07/2006 [facility] Immunizations Results Vital Signs Encounters Location Location Details Encounter Type Encounter Number Reason For Visit Attending Provider ADM Date DC Date Status Source [facility] Emergency Room [id number] POSS URINE INFECTION [facility] 12/07/2006 Active [facility] Procedures Plan of Care Social History Assessment and Plan Family History Value Date Source Advance Directives Order Name Results Value Date Source
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
--- NOTE | 2016-10-22 20:07 | NUR ---
ELIMINATION PATIENT UP TO BR TO VOID.
--- NOTE | 2016-10-22 20:57 | NUR ---
PROVIDER DR GRIDER IN TO SEE PATIENT.
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
[2016-10-22 21:14] VITALS: BP 135/90; PULSE 65; RESP 16; TEMP 98.3; O2SAT 99
--- NOTE | 2016-10-23 08:39 | DI ---
Indication: ITS.REASON: pain PROCEDURE: ANKLE RIGHT 2 VIEW: Encounter: Initial Comparison: None Findings: There is no acute fracture, dislocation or malalignment identified. Impression: No acute osseous abnormality. .
--- NOTE | 2016-10-23 08:39 | DI ---
Indication: ITS.REASON: Left foot trauma and pain PROCEDURE: FOOT LEFT 3 VIEWS: Encounter: Initial Comparison: None Findings: There is no acute fracture, dislocation or malalignment identified. Impression: No acute osseous abnormality. .
--- NOTE | 2016-10-23 08:40 | DI ---
Indication: ITS.REASON: trauma and left ankle pain PROCEDURE: ANKLE LEFT 2 VIEW: Encounter: Initial Comparison: None Findings: There is no acute fracture, dislocation or malalignment identified. Impression: No acute osseous abnormality. .
== END 2016-10-22 21:14 | disposition home or self-care (01) ==
LOC: EEVIPCON 18:46 → ED 18:46
DX: S93.402A Sprain of unspecified ligament of left ankle, initial encounter (principal); M25.571 Pain in right ankle and joints of right foot; W20.8XXA Other cause of strike by thrown, projected or falling object, initial encounter; Y93.9 Activity, unspecified; Y92.9 Unspecified place or not applicable; Y99.0 Civilian activity done for income or pay
CPT/HCPCS: 81025